=== PATIENT | male | born 1950 | race Caucasian/White ===

== ENCOUNTER 2022-05-12 11:43 | Inpatient (IN) | payer OTHER, MEDICARE, SELFPAY ==
[2022-05-12] VITALS (24 sets, daily range): BP systolic 111–154; BP diastolic 65–91; PULSE 47–59; RESP 12–24; TEMP 36.2–36.9; O2SAT 86–97; BMI 34.0; BMI 32.2
--- NOTE | 2022-05-12 | CRLHL7_ITS ---
For Patients: As a result of the Cures Act, medical imaging exams and procedure reports are released immediately into your electronic medical record. You may view this report before your referring provider. If you have questions, please contact your health care provider. Indication: Fall rib pain Technique: Portable chest Comparison: No comparison Findings: Low lung volumes. Enlarged cardiac silhouette diffuse prominent interstitial markings which may represent pulmonary edema. Left posterior 6th - 9th posterior fractures. No pneumothorax is seen. Dictated by Shasta Davis MD @ 05/12/2022 1:54:32 PM (Electronically Signed)
--- NOTE | 2022-05-12 13:15 | ED.GENADULT ---
HPI - General Adult General Date Seen: 05/12/22 Chief complaint: Fall/Minor Trauma Stated complaint: fell on ice, hurt ribs Time Seen by Provider: 05/12/22 11:44 Source: patient and family Mode of arrival: ambulatory Limitations: no limitations History of Present Illness HPI narrative: Patient is a 71-year-old male who slipped and fell on the ice last night. He landed on his left side and had a little bit of pain in his left flank area after the fall but was not severe. This morning however he had more severe pain and shortness of breath in that left lower posterior ribcage area. He arrives with his son significantly diaphoretic, noting severe pain and shortness of breath. His son says last night he really looked okay but seems significantly worse this morning. He does have a history of COPD but is not typically significantly short of breath and is not on home oxygen. He denies cardiac history. He does not have chest pain, has not been syncopal. He is not on any blood thinners. Related Data Home Medications Medication Instructions Recorded Confirmed aspirin 325 mg capsule 650 mg PO DAILY 05/12/22 05/12/22 atenolol 50 mg tablet 50 mg PO DAILY 05/12/22 05/12/22 atorvastatin 80 mg tablet 80 mg PO QPM 05/12/22 05/12/22 hydrochlorothiazide 25 mg tablet 25 mg PO DAILY 05/12/22 05/12/22 metformin 1,000 mg tablet 1,000 mg PO BID 05/12/22 05/12/22 montelukast 10 mg tablet 10 mg PO QPM 05/12/22 05/12/22 multivitamin 1 tab PO DAILY 05/12/22 05/12/22 Allergies Allergy/AdvReac Type Severity Reaction Status Date / Time Penicillins Allergy Unknown Verified 05/12/22 12:01 Review of Systems Status of ROS: Reports: 10 or more systems reviewed and unremarkable except as noted in History and below PFSH PFSH Medical History (Updated 05/12/22 @ 18:14 by Chen Perea MD) Adenomatous colon polyp Coronary atherosclerosis DJD (degenerative joint disease) Essential hypertension Impotence of organic origin Tobacco use disorder Surgical History (Updated 05/12/22 @ 18:44 by Chen Perea MD) H/O arthroscopy of knee H/O colonoscopy (~03/2013) H/O esophagogastroduodenoscopy (~05/2020) History of bunionectomy Family History (Updated 05/12/22 @ 18:15 by Chen Perea MD) Father Colon cancer Mother Brain tumor Social History (Updated 05/12/22 @ 18:48 by Chen Perea MD) Narrative: Lives with , son, daughter, grandkids. Smokes half pack of cigarettes per day for the last 40 years. Drinks 3-4 cans of beer per day; 3 last night. Denies recreational drugs. Smoking Status: Current every day smoker What tobacco products do you use: cigarettes Smoking packs per day: 0.5 Smoking cigarettes per day: 10.0 Do you use any of these nicotine containing products: None Second hand tobacco smoke exposure: No How often do you have a drink containing alcohol: never How often do you have six or more drinks on one occasion: Never AUDIT-C Alcohol total score: 0 Non-prescribed substance use: denies use service: No Exam Narrative: Exam Narrative: Vital signs as noted above. In general, an alert elderly male, conversant, profusely diaphoretic. Head: Normocephalic, atraumatic. Eyes: Pupils are equal reactive. Extraocular movements are full. Conjunctivae are normal. ENT: Mucous membranes are moist. Neck: Supple without lymphadenopathy. Heart: Regular rate and rhythm. No obvious murmur. Lungs: He has diffuse crackles and wheezes bilaterally. There is no visible trauma to chest or posterior ribcage, but he does have significant tenderness to the left lateral ribcage posteriorly. No crepitus or subQ air, no obvious deformity. Back: No posterior midline tenderness. Abdomen: Protuberant and soft, no tenderness. No visible trauma. Extremities: Radial pulses intact bilaterally. Neurologic: Patient is alert and oriented to person and place. Speech is fluent. Face is symmetric. Moves all extremities equally. Affect: Normal. Skin: Diaphoretic, warm. Const: Vital Signs, click to edit/add: Vital Signs - 24 hr 05/12/22 11:55 05/12/22 13:47 05/12/22 14:00 Temperature 97.1 F L Pulse Rate 49 L 51 L Pulse Rate [Pulse Oximeter] 57 L Respiratory Rate 20 Blood Pressure Blood Pressure [Ri ght Upper Arm] 154/74 H Pulse Oximetry 93 95 93 Oxygen Delivery Me thod Room Air 05/12/22 14:02 05/12/22 14:15 05/12/22 14:30 Temperature Pulse Rate 47 L 54 L 51 L Pulse Rate [Pulse Oximeter] Respiratory Rate Blood Pressure 128/65 Blood Pressure [Ri ght Upper Arm] Pulse Oximetry 93 94 95 Oxygen Delivery Me thod 05/12/22 14:31 05/12/22 14:45 05/12/22 15:02 Temperature Pulse Rate 52 L 54 L 59 L Pulse Rate [Pulse Oximeter] Respiratory Rate Blood Pressure 121/67 Blood Pressure [Ri ght Upper Arm] Pulse Oximetry 95 94 94 Oxygen Delivery Me thod 05/12/22 15:15 05/12/22 15:30 05/12/22 15:34 Temperature Pulse Rate 52 L 51 L 49 L Pulse Rate [Pulse Oximeter] Respiratory Rate Blood Pressure Blood Pressure [Ri ght Upper Arm] Pulse Oximetry 94 96 96 Oxygen Delivery Me thod 05/12/22 15:45 05/12/22 16:00 05/12/22 16:04 Temperature Pulse Rate 48 L 50 L 50 L Pulse Rate [Pulse Oximeter] Respiratory Rate Blood Pressure Blood Pressure [Ri ght Upper Arm] Pulse Oximetry 95 97 97 Oxygen Delivery Me thod 05/12/22 16:15 05/12/22 16:30 05/12/22 16:35 Temperature Pulse Rate 57 L 51 L 50 L Pulse Rate [Pulse Oximeter] Respiratory Rate Blood Pressure 133/75 Blood Pressure [Ri ght Upper Arm] Pulse Oximetry 95 95 95 Oxygen Delivery Me thod 05/12/22 16:45 05/12/22 17:00 05/12/22 17:02 Temperature Pulse Rate 51 L 48 L 50 L Pulse Rate [Pulse Oximeter] Respiratory Rate Blood Pressure 125/68 Blood Pressure [Ri ght Upper Arm] Pulse Oximetry 95 95 95 Oxygen Delivery Me thod Documenting provider has reviewed patient's vital signs: yes Course Course Hospital Course: On initial arrival, patient was placed on the monitor and oximetry. I used the ultrasound to look at his left chest and did not see evidence of significant fluid collection at the base of the lung, did see sliding lung sign at the apex. Portable chest x-ray was ordered. He was placed on 2 L of nasal cannula oxygen for comfort. I ordered a DuoNeb. I also ordered 4 mg of morphine IV. An EKG is pending. Review of a portable chest x-ray by my review shows at least 3 posterior rib fractures, I do not see obvious pneumothorax or hemothorax. I will go ahead and order a CT scan however. Patient was significantly improved after neb and pain medications, he was resting comfortably although he does still sound a little bit junky. Wheezing is improved. His white blood cell count was elevated at 13.4, hemoglobin 17.8. Platelets normal. D-dimer was normal for age 0.67. Electrolytes normal, creatinine 0.9. CRP was 0.6. Lactate normal at 1.4. BNP relatively unremarkable at 584. No evidence of significant heart failure on x-ray. Urinalysis was notable for 0-2 red cells 0-2 white blood cells. Point of care troponin was 0.01. He did have an EKG which showed a sinus bradycardia with possibly septal Q-waves although there is quite a bit of artifact. He does have flipped T-waves in 3 and F. the flipped T-waves are new compared to a prior EKG but this is from 2009. The septal Q-waves are actually not new compared to that EKG. CT scan by my review does not show evidence of pneumothorax or hemothorax. He has posterior rib fractures as seen on the x-ray. Final radiology read is notable for rib fractures of the 7th 8th and 9th ribs. They read the rest of the CT is unremarkable. I gave him prednisone 60 mg orally. He did require additional morphine for pain control. Overall, I think he will benefit from admission for pain control, management of his respiratory status for a day or 2. He is amenable to that. He will be admitted to the hospital service. Vital Signs Vital signs: Initial Vital Signs Temperature 97.1 F L 05/12/22 11:55 Temperature Source Temporal Artery Scan 05/12/22 11:55 Pulse Rate 57 L 05/12/22 11:55 Respiratory Rate 20 05/12/22 11:55 Blood Pressure 154/74 H 05/12/22 11:55 Blood Pressure Mean 100 05/12/22 11:55 Blood Pressure Position Supine 05/12/22 11:55 Pulse Oximetry 93 05/12/22 11:55 Oxygen Delivery Method 05/12/22 11:55 Vital Signs Temperature 97.1 F L 05/12/22 11:55 Pulse Rate 57 L 05/12/22 11:55 Respiratory Rate 20 05/12/22 11:55 Blood Pressure 154/74 H 05/12/22 11:55 Pulse Oximetry 93 05/12/22 11:55 Oxygen Delivery Method 05/12/22 11:55 Temperature 98.4 F 05/12/22 18:00 Pulse Rate 53 L 05/12/22 18:00 Respiratory Rate 24 05/12/22 18:00 Blood Pressure 134/91 H 05/12/22 18:00 Pulse Oximetry 94 05/12/22 18:00 Oxygen Delivery Method 05/12/22 18:00 Medical Decision Making Lab Data Labs: Lab Results 05/12/22 05/12/22 05/12/22 Range/Units 13:01 13:15 13:15 WBC 13.38 H (4.50-11.00) K/uL RBC 5.91 H (4.30-5.90) m/uL Hgb 17.8 H (13.5-17.5) gm/dL Hct 53.8 H (37.0-53.0) % MCV 91 (80-100) fL MCH 30 (26-34) pg MCHC 33 (32-36) gm/dL RDW Coeff of Alex 12.2 (11.5-15.5) % Plt Count 248 (140-440) K/uL Neut % (Auto) 72.0 (42.0-72.0) % Lymph % (Auto) 13.3 L (20-44) % [place] % (Auto) 13.7 H (0.0-11.0) % Eos % (Auto) 0.4 (0.0-7.0) % Baso % (Auto) 0.4 (0.0-3.0) % Neut # (Auto) 9.60 H (1.7-7.0) K/uL Lymph # (Auto) 1.80 (0.90-2.90) K/uL [place] # (Auto) 1.80 H (0.00-0.90) K/UL Eos # (Auto) 0.10 (0.00-0.50) K/uL Baso # (Auto) 0.10 (0.00-0.30) K/uL D-Dimer Quant (PE/DVT) 0.67 H (0.00-0.50) ug/ml Sodium (135-149) mmol/L Potassium (3.6-5.1) mmol/L Chloride (96-114) mmol/L Carbon Dioxide (20-32) mmol/L BUN (7-30) mg/dL Creatinine (0.5-1.5) mg/dL Estimated Creat Clear Estimated GFR ml/min Glucose (60-115) mg/dL Lactate (0.5-1.9) mmol/L Calcium (8.4-10.6) mg/dL C-Reactive Protein (0.5-1.0) mg/dL NT-Pro-B Natriuret Pep pg/mL Urine Color (Yellow) Urine Appearance (Clear) Urine pH (5.0-8.5) Ur Specific [place] (1.000-1.030) Urine Protein (Negative) Urine Glucose (UA) (Negative) Urine Ketones (Negative) Urine Blood (Negative) Urine Nitrite (Negative) Urine Bilirubin (Negative) Urine Urobilinogen (0.2-1.0) Ur Leukocyte Esterase (Negative) Urine RBC (0-2) Urine WBC (0-5) Ur Squamous Epith Cells (None-Few) Urine Bacteria (None) SARS-CoV-2 (PCR) (Negative) Influenza Type A (PCR) (Negative) Influenza Type B (PCR) (Negative) RSV (PCR) (Negative) POC Troponin I 0.01 (0.01-0.04) ng/ml 05/12/22 05/12/22 05/12/22 Range/Units 13:15 13:15 13:15 WBC (4.50-11.00) K/uL RBC (4.30-5.90) m/uL Hgb (13.5-17.5) gm/dL Hct (37.0-53.0) % MCV (80-100) fL MCH (26-34) pg MCHC (32-36) gm/dL RDW Coeff of Alex (11.5-15.5) % Plt Count (140-440) K/uL Neut % (Auto) (42.0-72.0) % Lymph % (Auto) (20-44) % [place] % (Auto) (0.0-11.0) % Eos % (Auto) (0.0-7.0) % Baso % (Auto) (0.0-3.0) % Neut # (Auto) (1.7-7.0) K/uL Lymph # (Auto) (0.90-2.90) K/uL [place] # (Auto) (0.00-0.90) K/UL Eos # (Auto) (0.00-0.50) K/uL Baso # (Auto) (0.00-0.30) K/uL D-Dimer Quant (PE/DVT) (0.00-0.50) ug/ml Sodium 135 (135-149) mmol/L Potassium 4.7 (3.6-5.1) mmol/L Chloride 98 (96-114) mmol/L Carbon Dioxide 30 (20-32) mmol/L BUN 15 (7-30) mg/dL Creatinine 0.9 (0.5-1.5) mg/dL Estimated Creat Clear 69.72 Estimated GFR 92 ml/min Glucose 165 H (60-115) mg/dL Lactate 1.4 (0.5-1.9) mmol/L Calcium 9.2 (8.4-10.6) mg/dL C-Reactive Protein 0.6 (0.5-1.0) mg/dL NT-Pro-B Natriuret Pep 584 pg/mL Urine Color Yellow (Yellow) Urine Appearance Clear (Clear) Urine pH 6.5 (5.0-8.5) Ur Specific [place] 1.020 (1.000-1.030) Urine Protein Negative (Negative) Urine Glucose (UA) Negative (Negative) Urine Ketones 1+ A (Negative) Urine Blood Trace-intact A (Negative) Urine Nitrite Negative (Negative) Urine Bilirubin Negative (Negative) Urine Urobilinogen 0.2 (0.2-1.0) Ur Leukocyte Esterase Negative (Negative) Urine RBC 0-2 (0-2) Urine WBC 0-2 (0-5) Ur Squamous Epith Cells Few (None-Few) Urine Bacteria Few A (None) SARS-CoV-2 (PCR) (Negative) Influenza Type A (PCR) (Negative) Influenza Type B (PCR) (Negative) RSV (PCR) (Negative) POC Troponin I (0.01-0.04) ng/ml 05/12/22 Range/Units 16:00 WBC (4.50-11.00) K/uL RBC (4.30-5.90) m/uL Hgb (13.5-17.5) gm/dL Hct (37.0-53.0) % MCV (80-100) fL MCH (26-34) pg MCHC (32-36) gm/dL RDW Coeff of Alex (11.5-15.5) % Plt Count (140-440) K/uL Neut % (Auto) (42.0-72.0) % Lymph % (Auto) (20-44) % [place] % (Auto) (0.0-11.0) % Eos % (Auto) (0.0-7.0) % Baso % (Auto) (0.0-3.0) % Neut # (Auto) (1.7-7.0) K/uL Lymph # (Auto) (0.90-2.90) K/uL [place] # (Auto) (0.00-0.90) K/UL Eos # (Auto) (0.00-0.50) K/uL Baso # (Auto) (0.00-0.30) K/uL D-Dimer Quant (PE/DVT) (0.00-0.50) ug/ml Sodium (135-149) mmol/L Potassium (3.6-5.1) mmol/L Chloride (96-114) mmol/L Carbon Dioxide (20-32) mmol/L BUN (7-30) mg/dL Creatinine (0.5-1.5) mg/dL Estimated Creat Clear Estimated GFR ml/min Glucose (60-115) mg/dL Lactate (0.5-1.9) mmol/L Calcium (8.4-10.6) mg/dL C-Reactive Protein (0.5-1.0) mg/dL NT-Pro-B Natriuret Pep pg/mL Urine Color (Yellow) Urine Appearance (Clear) Urine pH (5.0-8.5) Ur Specific [place] (1.000-1.030) Urine Protein (Negative) Urine Glucose (UA) (Negative) Urine Ketones (Negative) Urine Blood (Negative) Urine Nitrite (Negative) Urine Bilirubin (Negative) Urine Urobilinogen (0.2-1.0) Ur Leukocyte Esterase (Negative) Urine RBC (0-2) Urine WBC (0-5) Ur Squamous Epith Cells (None-Few) Urine Bacteria (None) SARS-CoV-2 (PCR) Negative SARS-CoV-2 (Negative) Influenza Type A (PCR) Negative PCR FLU A (Negative) Influenza Type B (PCR) Negative PCR FLU B (Negative) RSV (PCR) Negative PCR RSV (Negative) POC Troponin I (0.01-0.04) ng/ml Discharge Plan Discharge Clinical Impression: Multiple fractures of ribs of left side, COPD (chronic obstructive pulmonary disease) Patient Disposition: Admitted As Inpatient Condition: Improved
--- NOTE | 2022-05-12 13:21 | CRLHL7_ITS ---
For Patients: As a result of the Century Cures Act, medical imaging exams and procedure reports are released immediately into your electronic medical record. You may view this report before your referring provider. If you have questions, please contact your health care provider. INDICATION: Lung nodule TECHNIQUE: CT chest with 98 mL Isovue 370 IV contrast. COMPARISON: Chest x-ray the same day. FINDINGS: Lungs and pleura: No suspicious nodules or infiltrates. No pleural effusions, pleural thickening, or pneumothorax. Heart and vasculature: Heart size is normal. Thoracic aorta and pulmonary artery are normal in caliber. Coronary artery calcifications. Aberrant right subclavian artery, anatomic variant. Lymph nodes/mediastinum: No mediastinal, hilar, or axillary adenopathy. Enlarged right thyroid lobe. Chest wall: No masses. Upper abdomen: Normal. Bones: Nondisplaced fractures of the posterior left 7th, 8th, and 9th ribs. IMPRESSION: Posterior left 7th through 9th rib fractures. Please note that all CT scans at this facility use dose modulation, iterative reconstruction, and/or weight-based dosing when appropriate to reduce radiation dose to as low as reasonably achievable. Dictated by Eulalio Ivey MD @ 05/12/2022 3:48:31 PM (Electronically Signed)
[2022-05-12 13:29] LABS: Lactate* 1.4 mmol/L (0.5-1.9)
[2022-05-12] MEDS: 0.9 % SODIUM CHLORIDE 1000 ml 1,000 ML IV (13:30)
[2022-05-12] MEDS: IPRAT-ALBUT 0.5-2.5 MG/3 ML NEB 1 NEB IH ×2 (13:30→20:05)
[2022-05-12 13:32] LABS: Appearance Urine Clear (Clear); Bilirubin Urine Negative (Negative); Blood Urine Trace-intact (Negative); Color Urine Yellow (Yellow); Glucose Urine Negative (Negative); Ketones Urine 1+ (Negative); Leukocyte Esterase Urine Negative (Negative); Nitrite Urine Negative (Negative); Protein Urine Negative (Negative); Urobilinogen Urine 0.2 (0.2-1.0); pH Urine 6.5 (5.0-8.5)
[2022-05-12] MEDS: MORPHINE 4 MG/ML INJ IVP ×2 (13:33→16:33)
[2022-05-12 13:35] LABS: Troponin, Point-of-Care* 0.01 ng/ml (0.01-0.04)
[2022-05-12] MEDS: ONDANSETRON 2 MG/ML inj 4 MG IVP (13:36)
[2022-05-12 13:44] LABS: Basophils Percent Auto 0.4 % (0.0-3.0); Eosinophils Percent Auto 0.4 % (0.0-7.0); Hematocrit 53.8 % (37.0-53.0); Hemoglobin* 17.8 gm/dL (13.5-17.5); Immature Granulocytes Pct Auto 0.2 %; Lymphocytes Percent Auto 13.3 % (20-44); Mean Corpuscular HGB Conc 33 gm/dL (32-36); Mean Corpuscular Hemoglobin 30 pg (26-34); Mean Corpuscular Volume 91 fL (80-100); Monocytes Percent Auto 13.7 % (0.0-11.0); Platelet Count* 248 K/uL (140-440); RDW Coefficient of Variation % 12.2 % (11.5-15.5); Red Blood Count 5.91 m/uL (4.30-5.90); White Blood Count* 13.38 K/uL (4.50-11.00)
[2022-05-12 13:50] LABS: Slide Review Reflex No
[2022-05-12 13:57] LABS: Chloride* 98 mmol/L (96-114); Potassium* 4.7 mmol/L (3.6-5.1); Sodium* 135 mmol/L (135-149)
[2022-05-12 14:00] LABS: Creatinine* 0.9 mg/dL (0.5-1.5); Est. Creatinine Clearance* 69.72; Estimated Glomerular Filt Rate 92 ml/min
[2022-05-12 14:01] LABS: Blood Urea Nitrogen* 15 mg/dL (7-30); Calcium* 9.2 mg/dL (8.4-10.6); Carbon Dioxide* 30 mmol/L (20-32); D Dimer Quantitative* 0.67 ug/ml (0.00-0.50); Glucose* 165 mg/dL (60-115)
[2022-05-12 14:03] LABS: C Reactive Protein* 0.6 mg/dL (0.5-1.0)
[2022-05-12 14:14] LABS: NT Pro B Type NatriureticPept* 584 pg/mL
[2022-05-12 14:16] LABS: Bacteria Urine Few; RBC Urine 0-2 (0-2); Squamous Epithelial Cell Urine Few (None-Few); WBC Urine 0-2 (0-5)
[2022-05-12] MEDS: predniSONE 20 MG TABLET 60 MG PO (16:17)
[2022-05-12 17:03] LABS: PCR FLU A Negative PCR FLU A (Negative); PCR FLU B Negative PCR FLU B (Negative); PCR RSV Negative PCR RSV (Negative)
[2022-05-12 17:05] LABS: SARS PCR* Negative SARS-CoV-2 (Negative)
--- NOTE | 2022-05-12 18:41 | P.IMHP_ITS ---
Hospitalist- H&P: HPI History of Present Illness Date Seen: 05/12/22 Chief complaint: fell on ice, hurt ribs Narrative: Pasquale Lomas is a 71 year old male who was coming back into the house from the bar last night after tucking in the horses when he slipped on the ice. He fell backward and hit his left flank. He immediately had pain there, but it was not intolerable, so he went to bed, but woke up this morning feeling much worse with pain in his left back and difficulty taking a deep breath due to pain. His son brought him to the ER saying that he was getting worse. Pasquale tells me that he has a history of asthma and he does continue to smoke a half a pack of cigarettes per day. He occasionally uses an inhaler at home but does not remember the name of it. When I mention albuterol, he notes that sounds familiar. He has been well lately and denies any lower extremity edema, coughs or colds. He denies any anticoagulation other than to regular dose aspirin daily. He has been taking that for ever and does not even remember why, but says it is probably for aches and pains. Review of Systems Status of ROS: Reports: 10 or more systems reviewed and unremarkable except as noted in History and below PFSH [facility] Medical History (Updated 05/12/22 @ 19:32 by Chen Perea MD) Adenomatous colon polyp Coronary atherosclerosis DJD (degenerative joint disease) Essential hypertension Impotence of organic origin Tobacco use disorder Surgical History (Updated 05/12/22 @ 18:44 by Chen Perea MD) H/O arthroscopy of knee H/O colonoscopy (~03/2013) H/O esophagogastroduodenoscopy (~05/2020) History of bunionectomy Family History (Updated 05/12/22 @ 18:15 by Chen Perea MD) Father Colon cancer Mother Brain tumor Social History (Updated 05/12/22 @ 18:48 by Chen Perea MD) Narrative: Lives with , son, daughter, grandkids. Smokes half pack of cigarettes per day for the last 40 years. Drinks 3-4 cans of beer per day; 3 last night. Denies recreational drugs. Smoking Status: Current every day smoker What tobacco products do you use: cigarettes Smoking packs per day: 0.5 Smoking cigarettes per day: 10.0 Do you use any of these nicotine containing products: None Second hand tobacco smoke exposure: No How often do you have a drink containing alcohol: never How often do you have six or more drinks on one occasion: Never AUDIT-C Alcohol total score: 0 Non-prescribed substance use: denies use service: No Meds Home Medications and Allergies Home Medications Medication Instructions Recorded Confirmed Type aspirin 325 mg capsule 650 mg PO DAILY 05/12/22 05/12/22 History atenolol 50 mg tablet 50 mg PO DAILY 05/12/22 05/12/22 History atorvastatin 80 mg tablet 80 mg PO QPM 05/12/22 05/12/22 History hydrochlorothiazide 25 mg tablet 25 mg PO DAILY 05/12/22 05/12/22 History metformin 1,000 mg tablet 1,000 mg PO BID 05/12/22 05/12/22 History montelukast 10 mg tablet 10 mg PO QPM 05/12/22 05/12/22 History multivitamin 1 tab PO DAILY 05/12/22 05/12/22 History Allergies Allergy/AdvReac Type Severity Reaction Status Date / Time Penicillins Allergy Unknown Verified 05/12/22 12:01 Exam Narrative: Exam Narrative: General: Gripping the handle on the bed and looks painful. Short shallow frequent breaths. Speaking in short sentences. Audible gurgling from across the room. Awake alert oriented x3. HEENT: Normocephalic atraumatic, pupils equally round and reactive to light and accommodation. Oropharynx clear. Mucous membranes are moist. No cervical lymphadenopathy, thyromegaly or carotid bruits. No JVD. Cardiovascular: Regular rate and rhythm. No murmurs, gallops, or rubs. Chest: Upper airway gurgling, but also rales in both lower lung arango. Shallow breaths, no wheezes. I did not see any bruising over the chest, but was unable to visually examine his back because he was too painful to move. I was able to gently palpate by sliding my hand between him and the bed and did not feel any abrasions or broken skin or any hematomas. Abdomen: Bowel sounds present. Soft, protuberant, nondistended, nontender. No hepatosplenomegaly or masses. Extremities: No edema, no cyanosis or clubbing. Skin: No jaundice, no pallor, no rashes. Neuro: Grossly intact. No focal deficits. Const: Vital Signs, click to edit/add: Vital Signs - 24 hr 05/12/22 11:55 05/12/22 13:47 05/12/22 14:00 Temperature 97.1 F L Pulse Rate 49 L 51 L Pulse Rate [Apical ] Pulse Rate [Pulse Oximeter] 57 L Respiratory Rate 20 Blood Pressure Blood Pressure [Ri ght Arm] Blood Pressure [Ri ght Upper Arm] 154/74 H Pulse Oximetry 93 95 93 [facility] 05/12/22 14:02 05/12/22 14:15 05/12/22 14:30 Temperature Pulse Rate 47 L 54 L 51 L Pulse Rate [Apical ] Pulse Rate [Pulse Oximeter] Respiratory Rate Blood Pressure 128/65 Blood Pressure [Ri ght Arm] Blood Pressure [Ri ght Upper Arm] Pulse Oximetry 93 94 95 Oxygen Delivery Dc thod 05/12/22 14:31 05/12/22 14:45 05/12/22 15:02 Temperature Pulse Rate 52 L 54 L 59 L Pulse Rate [Apical ] Pulse Rate [Pulse Oximeter] Respiratory Rate Blood Pressure 121/67 Blood Pressure [Ri ght Arm] Blood Pressure [Ri ght Upper Arm] Pulse Oximetry 95 94 94 Oxygen Delivery Dc thod 05/12/22 15:15 05/12/22 15:30 05/12/22 15:34 Temperature Pulse Rate 52 L 51 L 49 L Pulse Rate [Apical ] Pulse Rate [Pulse Oximeter] Respiratory Rate Blood Pressure Blood Pressure [Ri ght Arm] Blood Pressure [Ri ght Upper Arm] Pulse Oximetry 94 96 96 Oxygen Delivery Dc thod 05/12/22 15:45 05/12/22 16:00 05/12/22 16:04 Temperature Pulse Rate 48 L 50 L 50 L Pulse Rate [Apical ] Pulse Rate [Pulse Oximeter] Respiratory Rate Blood Pressure Blood Pressure [Ri ght Arm] Blood Pressure [Ri ght Upper Arm] Pulse Oximetry 95 97 97 Oxygen Delivery Dc thod 05/12/22 16:15 05/12/22 16:30 05/12/22 16:35 Temperature Pulse Rate 57 L 51 L 50 L Pulse Rate [Apical ] Pulse Rate [Pulse Oximeter] Respiratory Rate Blood Pressure 133/75 Blood Pressure [Ri ght Arm] Blood Pressure [Ri ght Upper Arm] Pulse Oximetry 95 95 95 Oxygen Delivery Me thod 05/12/22 16:45 05/12/22 17:00 05/12/22 17:02 Temperature Pulse Rate 51 L 48 L 50 L Pulse Rate [Apical ] Pulse Rate [Pulse Oximeter] Respiratory Rate Blood Pressure 125/68 Blood Pressure [Ri ght Arm] Blood Pressure [Ri ght Upper Arm] Pulse Oximetry 95 95 95 Oxygen Delivery Me thod 05/12/22 18:00 05/12/22 17:50 Temperature 98.4 F Pulse Rate Pulse Rate [Apical ] 53 L Pulse Rate [Pulse Oximeter] Respiratory Rate 24 24 Blood Pressure Blood Pressure [Ri ght Arm] 134/91 H Blood Pressure [Ri ght Upper Arm] Pulse Oximetry 94 86 L Oxygen Delivery Me thod Room Air Room Air Hospitalist - H&P: Result Labs Labs: Short CBC 05/12/22 Range/Units 13:15 WBC 13.38 H (4.50-11.00) K/uL Hgb 17.8 H (13.5-17.5) gm/dL Hct 53.8 H (37.0-53.0) % Plt Count 248 (140-440) K/uL BMP 05/12/22 13:15 Sodium 135 Potassium 4.7 Chloride 98 Carbon Dioxide 30 BUN 15 Creatinine 0.9 Glucose 165 H Calcium 9.2 Urine 05/12/22 Range/Units 13:15 Urine Color Yellow (Yellow) Urine Appearance Clear (Clear) Urine pH 6.5 (5.0-8.5) Ur Specific Orange 1.020 (1.000-1.030) Urine Protein Negative (Negative) Urine Glucose (UA) Negative (Negative) Ordering Physician: Jolly Warren M.D. Date of Service: 05/12/22 Procedure(s): XR chest 1V portable Accession Number(s): [id number] cc: Jolly Warren M.D.; Fiordaliza Gale D.O.~ For Patients: As a result of the Cures Act, medical imaging exams and procedure reports are released immediately into your electronic medical record. You may view this report before your referring provider. If you have questions, please contact your health care provider. Indication: Fall rib pain Technique: Portable chest Comparison: No comparison Findings: Low lung volumes. Enlarged cardiac silhouette diffuse prominent interstitial markings which may represent pulmonary edema. Left posterior 6th - 9th posterior fractures. No pneumothorax is seen. Dictated by Shasta Davis MD @ 05/12/2022 1:54:32 PM (Electronically Signed) Ordering Physician: Jolly Warren M.D. Date of Service: 05/12/22 Procedure(s): CT chest w con Accession Number(s): [id number] cc: Jolly Warren M.D.; Fiordaliza Gale D.O.~ For Patients: As a result of the Cures Act, medical imaging exams and procedure reports are released immediately into your electronic medical record. You may view this report before your referring provider. If you have questions, please contact your health care provider. INDICATION: Lung nodule TECHNIQUE: CT chest with 98 mL Isovue 370 IV contrast. COMPARISON: Chest x-ray the same day. FINDINGS: Lungs and pleura: No suspicious nodules or infiltrates. No pleural effusions, pleural thickening, or pneumothorax. Heart and vasculature: Heart size is normal. Thoracic aorta and pulmonary artery are normal in caliber. Coronary artery calcifications. Aberrant right subclavian artery, anatomic variant. Lymph nodes/mediastinum: No mediastinal, hilar, or axillary adenopathy. Enlarged right thyroid lobe. Chest wall: No masses. Upper abdomen: Normal. Bones: Nondisplaced fractures of the posterior left 7th, 8th, and 9th ribs. IMPRESSION: Posterior left 7th through 9th rib fractures. Please note that all CT scans at this facility use dose modulation, iterative reconstruction, and/or weight-based dosing when appropriate to reduce radiation dose to as low as reasonably achievable. Dictated by Eulalio Ivey MD @ 05/12/2022 3:48:31 PM (Electronically Signed) 05/12/2022 2:42 p.m. EKG: Sinus bradycardia. Heart rate 53 beats per minute. Anterior septal infarct, age undetermined. T-wave abnormality, consider inferior ischemia. I found an EKG from 12/06/2014 in [facility] records, and the EKG is unchanged. Assessment and Plan Assessment and plan (1) Multiple fractures of ribs of left side: Status: Acute (2) Acute respiratory distress: Status: Acute (3) COPD (chronic obstructive pulmonary disease): Status: Acute (4) Tobacco use disorder: Status: Acute Plan 71-year-old male who fell and slipped on the ice sustaining 3 posterior left rib fractures. He is quite painful today and splinting. He has upper airway sounds as well as rales. He has a history of COPD which I think has been exacerbated by this episode. He got prednisone in the emergency department which I will continue daily. I have also ordered DuoNebs and vibratory pep. I do not think he needs antibiotics at this time. I have ordered oxycodone for pain control and he will be seen by PT and OT tomorrow. Anticipate he will just need to be here overnight. Additionally it is possible he has some volume overload for which I will give him a dose of furosemide IV today.
[2022-05-12] MEDS: OXYCODONE 5 MG TABLET PO (18:49)
[2022-05-12] MEDS: FUROSEMIDE 10 MG/ML inj 40 MG IVP (20:05)
[2022-05-12] MEDS: NICOTINE 7 MG PATCH 1 PATCH TRANSDERMA (20:05)
[2022-05-12] MEDS: METFORMIN 1,000 MG TABLET 1000 MG PO (20:05)
[2022-05-12] MEDS: THIAMINE 100 MG TABLET PO (20:06)
[2022-05-12] MEDS: SODIUM CHLORIDE 0.9 % (FLUSH) 10 ML SYRINGE 5 ML IVF (20:06)
--- NOTE | 2022-05-12 22:36 | PC.NURSE ---
Shift [id number]- Patient states PRN pain medication offered some relief to rib pain, also finds ice effective. He is up and voiding. Wet sounding breathing. O2 at 2L with saturations in low-mid 90s%.
[2022-05-13] VITALS (9 sets, daily range): BP systolic 118–164; BP diastolic 67–86; PULSE 53–68; RESP 12–22; TEMP 36.6–37.3; O2SAT 91–97
[2022-05-13] MEDS: OXYCODONE 5 MG TABLET PO ×2 (07:39→11:38)
[2022-05-13] MEDS: FOLIC ACID 1 MG TABLET PO (08:48)
[2022-05-13] MEDS: hydroCHLOROthiazide 25 MG TABLET PO (08:48)
[2022-05-13] MEDS: predniSONE 20 MG TABLET 40 MG PO (08:48)
[2022-05-13] MEDS: atenoloL 50 MG TABLET 25 MG PO (08:48)
[2022-05-13] MEDS: METFORMIN 1,000 MG TABLET 1000 MG PO ×2 (08:48→20:34)
[2022-05-13] MEDS: MULTIVITAMIN/MINERALS 1 TABLET 1 TAB PO (08:48)
[2022-05-13] MEDS: SODIUM CHLORIDE 0.9 % (FLUSH) 10 ML SYRINGE 5 ML IVF ×3 (08:49→20:34)
[2022-05-13] MEDS: IPRAT-ALBUT 0.5-2.5 MG/3 ML NEB 1 NEB IH (10:21)
--- NOTE | 2022-05-13 11:44 | RESP.RT ---
Patient sitting on edge of bed, on room air, SaO2 92%, breathing regular/easy shallow. BBS coarse rales/rhonchi inspiratory/expiratory, clear slightly with use of Aerobika. PEP instruction, demonstration with patient, patient return fair exhalation with fair chest shake. Patient States, painful with any more effort than that. Told patient it will get better, and he will notice the difference with use of Aerobika. Needs encouragement by RT and Nurse to continue to use Aerobika. Patient stated Nebulizer treatments seem helpful, would continue with these treatments PRN as patient needs. Goal to keep SaO2 >90%, Nasal cannula if needed and encourae patient to use Aerobika to assist with secretion mobilization.
--- NOTE | 2022-05-13 14:59 | PM.IMPN1 ---
Progress Note: A&P Assessment and plan (1) Multiple fractures of ribs of left side: Problem details: Traumatic rib fractures without other obvious injuries. Patient is developing respiratory complications due to pain. Encourage adequate pain management to allow coughing and deep breathing. Good pulmonary toilet. Status: Acute (2) COPD (chronic obstructive pulmonary disease): Problem details: Inhaled bronchodilators Status: Acute (3) Acute respiratory distress: Problem details: Supplemental oxygen as needed Status: Acute (4) Tobacco use disorder: Status: Acute Plan Continue in-hospital well still needing monitoring for respiratory failure and supplemental oxygen. Improved pain control. Time Spent With Patient Total time spent: Total time spent today is 45 minutes, 35 minutes in coordination of care and discussing with patient other providers management of rib fractures and pulmonary complications. Subjective Date Seen: 05/13/22 Interval history: 71-year-old male seen in followup of hospitalization for left-sided rib fractures associated with hypoxia. Patient fell 2 days ago and sustained a fracture to his posterior left 7 8 and 9 ribs. Initially did okay but yesterday was having increasing pain with shortness of breath. He is evaluated in the emergency room where he was found to be hypoxic. Chest imaging showed rib fractures without any other acute infiltrate or other obvious trigger traumatic injury or bleeding. Patient reports today still feeling poorly. Hurts to breathe and hurts to cough. He reports he has intentionally taking very shallow breaths. He has a rattle in his chest when he breathes and he says it hurts to cough up the mucus. Exam Narrative: Exam Narrative: He is alert and appears uncomfortable. Audible rhonchi with breathing. Mildly tachypneic. Respirations with crackles on the low left lower and mid chest. Relatively clear on the right. Patient resists coughing to clear his airway. Cardiovascular: S1, S2, regular rate and rhythm. Abdomen is soft without tenderness or mass. Extremities without edema. Const: Vital Signs, click to edit/add: Vital Signs - 24 hr 05/12/22 15:02 05/12/22 15:15 05/12/22 15:30 Temperature Pulse Rate 59 L 52 L 51 L Pulse Rate [Apical ] Respiratory Rate Blood Pressure Blood Pressure [Ri ght Arm] Pulse Oximetry 94 94 96 Oxygen Delivery Me thod Oxygen Flow Rate 05/12/22 15:34 05/12/22 15:45 05/12/22 16:00 Temperature Pulse Rate 49 L 48 L 50 L Pulse Rate [Apical ] Respiratory Rate Blood Pressure Blood Pressure [Ri ght Arm] Pulse Oximetry 96 95 97 Oxygen Delivery Me thod Oxygen Flow Rate 05/12/22 16:04 05/12/22 16:15 05/12/22 16:30 Temperature Pulse Rate 50 L 57 L 51 L Pulse Rate [Apical ] Respiratory Rate Blood Pressure Blood Pressure [Ri ght Arm] Pulse Oximetry 97 95 95 Oxygen Delivery Me thod Oxygen Flow Rate 05/12/22 16:35 05/12/22 16:45 05/12/22 17:00 Temperature Pulse Rate 50 L 51 L 48 L Pulse Rate [Apical ] Respiratory Rate Blood Pressure 133/75 Blood Pressure [Ri ght Arm] Pulse Oximetry 95 95 95 Oxygen Delivery Me thod Oxygen Flow Rate 05/12/22 17:02 05/12/22 18:00 05/12/22 17:50 Temperature 98.4 F Pulse Rate 50 L Pulse Rate [Apical ] 53 L Respiratory Rate 24 24 Blood Pressure 125/68 Blood Pressure [Ri ght Arm] 134/91 H Pulse Oximetry 95 94 86 L Oxygen Delivery Me thod Room Air Room Air Oxygen Flow Rate 05/12/22 23:49 05/12/22 23:49 05/12/22 23:49 Temperature 97.8 F Pulse Rate Pulse Rate [Apical ] 59 L 59 L Respiratory Rate 12 12 Blood Pressure Blood Pressure [Ri ght Arm] 111/66 Pulse Oximetry 93 Oxygen Delivery Me thod Nasal Cannula Nasal Cannula Oxygen Flow Rate 2 2 05/13/22 06:42 05/13/22 08:00 05/13/22 08:00 Temperature 98 F 98 F Pulse Rate Pulse Rate [Apical ] 53 L 58 L Respiratory Rate 12 20 20 Blood Pressure Blood Pressure [Ri ght Arm] 119/67 138/86 Pulse Oximetry 97 94 94 Oxygen Delivery Me thod Nasal Cannula Nasal Cannula Nasal Cannula Oxygen Flow Rate 2 2 2 05/13/22 11:44 05/13/22 11:40 Temperature 98.2 F Pulse Rate Pulse Rate [Apical ] 62 Respiratory Rate 20 22 Blood Pressure Blood Pressure [Ri ght Arm] 164/78 H Pulse Oximetry 91 92 Oxygen Delivery Me thod Nasal Cannula Room Air Oxygen Flow Rate 2 Documenting provider has reviewed patient's vital signs: yes Labs Labs: Laboratory Results - last 24 hr 05/12/22 16:00 SARS-CoV-2 (PCR) Negative SARS-CoV-2 Influenza Type A (PCR) Negative PCR FLU A Influenza Type B (PCR) Negative PCR FLU B RSV (PCR) Negative PCR RSV
[2022-05-13] MEDS: HYDROmorphone 0.5 mg/0.5 ml inj IVP ×2 (15:28→20:35)
[2022-05-13] MEDS: LOSARTAN POTASSIUM 50 MG TABLET PO (15:29)
--- NOTE | 2022-05-13 17:17 | PC.NURSE ---
Shift Summary: Patient pleasant and cooperative, up independently, denies SOB. Pain 9/10 throughout day, poor control is PRN oxycodone, received new order for PRN dilaudid which has been effective. Patient has been resting in bed with ice pack under left back. Continues to be on o2 @ 2L/NC. Tolerating regular diet. Unable to cough to clear throat, encouraged to use pillow/blanket as splint.
[2022-05-13] MEDS: ATORVASTATIN CALCIUM 40 MG TABLET 80 MG PO (17:39)
[2022-05-13] MEDS: NAPROXEN 250 MG TABLET PO (17:39)
[2022-05-13] MEDS: MONTELUKAST 10 MG TABLET PO (17:39)
[2022-05-13] MEDS: THIAMINE 100 MG TABLET PO (20:33)
[2022-05-14] VITALS (11 sets, daily range): BP systolic 112–141; BP diastolic 53–84; PULSE 52–82; RESP 12–22; TEMP 36.6–37.5; O2SAT 91–96
[2022-05-14] MEDS: HYDROmorphone 0.5 mg/0.5 ml inj IVP ×2 (02:30→05:50)
--- NOTE | 2022-05-14 05:43 | PC.NURSE ---
Patient is alert and oriented x4, vss, on 2L O2 and maintaining SPO2 in low 90's, drinking adequate fluids and voiding appropriately. He is up ad-lara, using bathroom toilet to void. Patient has spent this entire shift in bed other than using the bathroom. Patient has complained of 8/10 pain in upper posterior left side, per the patient Oxy is not helping with pain even at a 10mg dose so order placed yesterday for .2 - .5mg IV push Dilaudid and that appears to be working. Patient insists he needs a splint or brace wrap for ribs for help with pain and coughing. He received education from this sports writer about using a pillow as splint while coughing to help with pain. Patient has produced a very small amount of thick white sputum. Expiratory respirations are very audible and course sounding.
[2022-05-14] MEDS: SODIUM CHLORIDE 0.9 % (FLUSH) 10 ML SYRINGE 5 ML IVF ×3 (05:51→20:52)
[2022-05-14 07:03] LABS: Basophils Percent Auto 0.3 % (0.0-3.0); Eosinophils Percent Auto 0.4 % (0.0-7.0); Hematocrit 51.6 % (37.0-53.0); Hemoglobin* 16.8 gm/dL (13.5-17.5); Immature Granulocytes Pct Auto 0.1 %; Lymphocytes Percent Auto 14.3 % (20-44); Mean Corpuscular HGB Conc 33 gm/dL (32-36); Mean Corpuscular Hemoglobin 30 pg (26-34); Mean Corpuscular Volume 92 fL (80-100); Monocytes Percent Auto 14.9 % (0.0-11.0); Platelet Count* 207 K/uL (140-440); RDW Coefficient of Variation % 12.5 % (11.5-15.5); Red Blood Count 5.62 m/uL (4.30-5.90); White Blood Count* 14.43 K/uL (4.50-11.00)
[2022-05-14 07:15] LABS: Chloride* 97 mmol/L (96-114); Potassium* 4.1 mmol/L (3.6-5.1); Sodium* 134 mmol/L (135-149)
[2022-05-14 07:18] LABS: Blood Urea Nitrogen* 26 mg/dL (7-30); Calcium* 8.9 mg/dL (8.4-10.6); Carbon Dioxide* 30 mmol/L (20-32); Creatinine* 0.9 mg/dL (0.5-1.5); Est. Creatinine Clearance* 67.45; Estimated Glomerular Filt Rate 92 ml/min; Glucose* 145 mg/dL (60-115)
[2022-05-14 07:29] LABS: Slide Review Reflex No
--- NOTE | 2022-05-14 07:44 | CRLHL7_ITS ---
For Patients: As a result of the Cures Act, medical imaging exams and procedure reports are released immediately into your electronic medical record. You may view this report before your referring provider. If you have questions, please contact your health care provider. INDICATION: HYPOXIA AFTER RIB FRACTURES TECHNIQUE: Chest 2 views COMPARISON: 05/12/2022 FINDINGS: Fractures of the left 7th, 8th and 9th ribs. No pneumothorax. Increased parenchymal density within the right lower lobe. No pleural effusion. IMPRESSION: Left-sided rib fractures unchanged. No pneumothorax. Increased atelectasis or aspiration pneumonitis in the right lower lobe. Dictated by Abdiel Razo MD @ 05/14/2022 9:54:15 AM (Electronically Signed)
[2022-05-14] MEDS: NAPROXEN 250 MG TABLET PO ×2 (08:06→17:53)
[2022-05-14] MEDS: predniSONE 20 MG TABLET 40 MG PO (08:06)
[2022-05-14] MEDS: OXYCODONE 5 MG TABLET PO ×4 (08:19→20:50)
[2022-05-14] MEDS: LOSARTAN POTASSIUM 50 MG TABLET PO (09:09)
[2022-05-14] MEDS: FOLIC ACID 1 MG TABLET PO (09:09)
[2022-05-14] MEDS: MULTIVITAMIN/MINERALS 1 TABLET 1 TAB PO (09:09)
[2022-05-14] MEDS: METFORMIN 1,000 MG TABLET 1000 MG PO ×2 (09:09→20:50)
[2022-05-14] MEDS: atenoloL 25 MG TABLET PO (09:09)
[2022-05-14] MEDS: hydroCHLOROthiazide 25 MG TABLET PO (09:09)
--- NOTE | 2022-05-14 10:05 | RESP.RT ---
Patient sounds very wet and has coarse lung sounds. Patient uses an Aerobika frequently, but refuses to cough because of pain.
[2022-05-14] MEDS: BUPIVACAINE 0.25 %/EPI 1:200K 30 ml INJECTION (12:30)
--- NOTE | 2022-05-14 13:54 | PM.IMPN1 ---
Progress Note: A&P Assessment and plan (1) Multiple fractures of ribs of left side: Problem details: Traumatic rib fractures without other obvious injuries. Patient is developing respiratory complications due to pain. Encourage adequate pain management to allow coughing and deep breathing. Good pulmonary toilet. Local injection into the rib fractures with bupivacaine is done. Significant improvement in pain afterwards Status: Acute (2) COPD (chronic obstructive pulmonary disease): Problem details: Inhaled bronchodilators. Monitor for signs or symptoms suggesting COPD exacerbation Status: Acute (3) Acute respiratory distress: Problem details: Supplemental oxygen as needed Status: Acute (4) Pneumonia: Problem details: New right basilar infiltrate in the context of left rib fractures. Aspiration verses atelectasis. Initiate oral antibiotic with cefuroxime and monitor clinically. Status: Acute (5) Tobacco use disorder: Status: Acute Plan Continue in hospital for monitoring of respiratory status, supplemental oxygen, pain management. Time Spent With Patient Total time spent: Total time spent today is 40 minutes, 30 minutes in coordination of care discussing with patient, and other providers management rib fractures and hypoxic respiratory fair Subjective Date Seen: 05/14/22 Interval history: 71-year-old male seen in followup of hospitalization for rib fractures and hypoxic respiratory failure. Patient reports his pain is been intermittently severe and well controlled. He has been receiving IV opioids for pain control. Finds that if he waits too long between doses the pain gets severe. He also finds that moving from supine to sitting to standing is also quite painful. He is still resisting coughing because of severe pain. Continues to require oxygen at 2 L per nasal cannula. He has had no fever. Exam Narrative: Exam Narrative: He is alert and appears in mild distress with increased work of breathing. He is also uncomfortable when I reposition in bed to examine him. Respirations with a few basilar crackles on the left and also a few on the right base. No wheezing. Fair air exchange in upper lung arango and on the right. Left base with diminished breath sounds. Cardiovascular: S1, S2, regular rate and rhythm. Abdomen is soft without tenderness except for I palpate his left upper quadrant he has rib pain in the back. Extremities without edema. Const: Vital Signs, click to edit/add: Vital Signs - 24 hr 05/13/22 15:41 05/13/22 15:41 05/13/22 19:00 Temperature 98.6 F 99.1 F Pulse Rate [Apical ] 65 61 Pulse Rate [Left A pical] Respiratory Rate 20 20 12 Blood Pressure [Ri ght Arm] 150/71 H 123/67 Pulse Oximetry 92 92 91 Oxygen Delivery Me thod Nasal Cannula Nasal Cannula Nasal Cannula Oxygen Flow Rate 2 2 2 Fraction of Inspir ed Oxygen 05/13/22 22:56 05/13/22 22:58 05/13/22 22:58 Temperature 99.1 F Pulse Rate [Apical ] 61 61 Pulse Rate [Left A pical] Respiratory Rate 12 12 Blood Pressure [Ri ght Arm] 123/67 Pulse Oximetry 91 91 Oxygen Delivery Me thod Nasal Cannula Nasal Cannula Oxygen Flow Rate 2 2 Fraction of Inspir ed Oxygen 05/13/22 23:40 05/14/22 02:37 05/14/22 02:51 Temperature 98.8 F 98.8 F 98.8 F Pulse Rate [Apical ] 68 52 L 52 L Pulse Rate [Left A pical] Respiratory Rate 12 12 12 Blood Pressure [Ri ght Arm] 118/73 132/84 132/84 Pulse Oximetry 95 96 96 Oxygen Delivery Me thod Nasal Cannula Nasal Cannula Nasal Cannula Oxygen Flow Rate 2 2 2 Fraction of Inspir ed Oxygen 05/14/22 03:04 05/14/22 05:40 05/14/22 07:00 Temperature Pulse Rate [Apical ] 61 Pulse Rate [Left A pical] Respiratory Rate 12 Blood Pressure [Ri ght Arm] Pulse Oximetry 91 93 Oxygen Delivery Me thod Nasal Cannula Nasal Cannula Oxygen Flow Rate 2 2 Fraction of Inspir ed Oxygen 05/14/22 07:45 05/14/22 12:15 05/14/22 07:45 Temperature 99.5 F 98.2 F 99.5 F Pulse Rate [Apical ] 82 Pulse Rate [Left A pical] 82 82 57 L Respiratory Rate 22 20 22 Blood Pressure [Ri ght Arm] 141/67 H 131/67 131/67 Pulse Oximetry 93 94 95 Oxygen Delivery Me thod Nasal Cannula Room Air Oxygen Flow Rate 2 2 2 Fraction of Inspir ed Oxygen 05/14/22 12:15 Temperature 98.2 F Pulse Rate [Apical ] Pulse Rate [Left A pical] 57 L Respiratory Rate 20 Blood Pressure [Ri ght Arm] 131/67 Pulse Oximetry 94 Oxygen Delivery Me thod Nasal Cannula Oxygen Flow Rate 2 Fraction of Inspir ed Oxygen Documenting provider has reviewed patient's vital signs: yes Labs Labs: Laboratory Results - last 24 hr 05/14/22 05/14/22 06:18 06:18 WBC 14.43 H RBC 5.62 Hgb 16.8 Hct 51.6 MCV 92 MCH 30 MCHC 33 RDW Coeff of Alex 12.5 Plt Count 207 Neut % (Auto) 70.0 Lymph % (Auto) 14.3 L [place] % (Auto) 14.9 H Eos % (Auto) 0.4 Baso % (Auto) 0.3 Neut # (Auto) 10.10 H Lymph # (Auto) 2.10 [place] # (Auto) 2.20 H Eos # (Auto) 0.10 Baso # (Auto) 0.00 Sodium 134 L Potassium 4.1 Chloride 97 Carbon Dioxide 30 BUN 26 Creatinine 0.9 Estimated Creat Clear 67.45 Estimated GFR 92 Glucose 145 H Calcium 8.9
--- NOTE | 2022-05-14 14:16 | PM.PROC ---
Procedure Note Date Seen: 05/14/22 Date of procedure: 05/14/22 Will [facility] bill your pro fee for this procedure?: Yes Pre-op diagnosis: Left-sided posterior fractures of ribs 7 8 and 9 Post-op diagnosis: same Procedure: Local anesthetic injection into rib fractures. Procedure Description: Discussed with patient's options for management of his pain. In this case given the severity of his pain and potential complications of uncontrolled pain from rib fractures he agreed to proceed with local injection of anesthetic for pain relief at the side of the rib fractures. Risks and benefits discussed and he gives rule consent. Area is prepped with Betadine. 0.25% Marcaine with epinephrine is infiltrated into each rib at the site of the fracture, site of maximum tenderness on palpation. 10 mL of lidocaine was used with approximately 1/3 of that going into each rib fracture. With this he had significant improvement in his pain within minutes. No apparent complications Anesthesia: none Surgeon: Irving Dimas MD Estimated blood loss (mL): 0 Pathology: none sent Condition: stable
--- NOTE | 2022-05-14 15:30 | PC.NURSE ---
Pt c/o posterior rib pain 7-8 out of 10 at initial assessment. Pt appears uncomfortable, beads of sweat on forehead, slow movements for repositioning. Oxygen @ 2L/NC. Scheduled Naprosyn provided followed by oxycodone 10mg PO with am med pass. Eval by RT, OT, PT, Dr. Dimas and myself on day shift. Pt taken to x-ray via w/c for repeat chest film. UAL in room w/oxygen on and extension tubing. CIWA scores did not trigger ativan protocol. Pt encouraged to use aerobika, splint when he does his deep breathing and coughing. Dr. Dimas injected the area of rib fractures w/medication to decrease pt's pain level while Lili present at bedside. He later stated his pain was 4 out of 10. Oxycodone 5mg PO given with pt's lunch and he was able to walk in the hallway with 2L/oxygen via NC. He appears much calmer and is moving more easily this afternoon. Please see eMar for other medications given to patient on day shift. Report to Neha CAMACHO for evening shift.
[2022-05-14] MEDS: MONTELUKAST 10 MG TABLET PO (17:52)
[2022-05-14] MEDS: ATORVASTATIN CALCIUM 40 MG TABLET 80 MG PO (17:52)
[2022-05-14] MEDS: THIAMINE 100 MG TABLET PO (19:24)
[2022-05-14] MEDS: IPRAT-ALBUT 0.5-2.5 MG/3 ML NEB 1 NEB IH ×2 (19:24→23:27)
--- NOTE | 2022-05-14 21:14 | PC.NURSE ---
Shift Note [id number]: Pt moving independently throughout his room without difficulty. Continues to require 2L/O2 via NC, SpO2 93-94%. He does dip to 88-89% with prolonged exertion. With ARGENIS assistance, pt walked throughout the unit approximately 200ft. Rated pain to left posterior ribs as high as 8/10, he verbalized injection earlier today helped quite a bit but had begun to wear off around supper time. 10mg Oxy given PO as well as icepack and pt verbalized this improved his discomfort to about 4/10. Encouraged TCDB and frequent repositioning. LS coarse on inspiration and expiration, worse in left sided base. PRN duo-neb x2. CIWA assessments unremarkable.
[2022-05-15 02:55] VITALS: BP 113/69; PULSE 56; RESP 14; TEMP 36.9; O2SAT 96
[2022-05-15] MEDS: OXYCODONE 5 MG TABLET PO ×5 (05:45→23:02)
--- NOTE | 2022-05-15 06:49 | PC.NURSE ---
Pt alert and oriented x3. Pt reports denies, chest pain, and N/V. Pt reports pain 7/10 pain in back and right side, pain managed with applying Ice packs to back, and PRN oxycodone.?Pt breath sounds have inspiratory and expiratory wheezes, pt anterior and posterior lung sounds have inspiratory and expiratory rhonchi and are course, and pt has intermittent moist?cough with no production. Overnight pt?s O2 sats were between 95-98%,?PRN neb was given per pt request for SOB.?Pt is currently?on 2L. Pt is up SBA/IND in room. Pt is tolerating a regular diet.? Pt slept throughout night.
[2022-05-15 06:59] LABS: Basophils Absolute Auto 0.05 K/uL (0.00-0.30); Basophils Percent Auto 0.5 % (0.0-3.0); Eosinophils Percent Auto 0.9 % (0.0-7.0); Hematocrit 47.5 % (37.0-53.0); Hemoglobin* 15.7 gm/dL (13.5-17.5); Immature Granulocytes Abs Auto 0.02 K/uL (0.00-0.30); Immature Granulocytes Pct Auto 0.2 %; Lymphocytes Percent Auto 19.7 % (20-44); Mean Corpuscular HGB Conc 33 gm/dL (32-36); Mean Corpuscular Hemoglobin 31 pg (26-34); Mean Corpuscular Volume 92 fL (80-100); Monocytes Percent Auto 14.7 % (0.0-11.0); Neutrophils Absolute Auto 6.76 K/uL (1.7-7.0); Platelet Count* 187 K/uL (140-440); RDW Coefficient of Variation % 12.4 % (11.5-15.5); Red Blood Count 5.15 m/uL (4.30-5.90); White Blood Count* 10.56 K/uL (4.50-11.00)
[2022-05-15 07:02] LABS: Slide Review Reflex No
[2022-05-15] MEDS: NAPROXEN 250 MG TABLET PO ×2 (07:38→17:32)
[2022-05-15 07:40] VITALS: BP 131/101; PULSE 68; RESP 20; TEMP 37.1; O2SAT 94
[2022-05-15] MEDS: predniSONE 20 MG TABLET 40 MG PO (07:52)
[2022-05-15] MEDS: LOSARTAN POTASSIUM 50 MG TABLET PO (09:18)
[2022-05-15] MEDS: SODIUM CHLORIDE 0.9 % (FLUSH) 10 ML SYRINGE 5 ML IVF ×2 (09:18→21:05)
[2022-05-15] MEDS: hydroCHLOROthiazide 25 MG TABLET PO (09:18)
[2022-05-15] MEDS: DOCUSATE SODIUM 100 MG CAPSULE PO (09:18)
[2022-05-15] MEDS: METFORMIN 1,000 MG TABLET 1000 MG PO ×2 (09:19→21:05)
[2022-05-15] MEDS: FOLIC ACID 1 MG TABLET PO (09:19)
[2022-05-15] MEDS: atenoloL 25 MG TABLET PO (09:19)
[2022-05-15] MEDS: MULTIVITAMIN/MINERALS 1 TABLET 1 TAB PO (09:19)
--- NOTE | 2022-05-15 11:31 | P.IMPN_ITS ---
Progress Note: A&P Assessment and plan (1) Multiple fractures of ribs of left side: Problem details: Traumatic rib fractures without other obvious injuries. Patient is developing respiratory complications due to pain. Encourage adequate pain management to allow coughing and deep breathing. Good pulmonary toilet. Local injection into the rib fractures with bupivacaine is repeated a 2nd time today. Significant improvement in pain afterwards Status: Acute (2) COPD (chronic obstructive pulmonary disease): Problem details: Inhaled bronchodilators. Monitor for signs or symptoms suggesting COPD exacerbation Status: Acute (3) Acute respiratory distress: Problem details: Supplemental oxygen as needed Status: Acute (4) Pneumonia: Problem details: New right basilar infiltrate in the context of left rib fractures. Aspiration verses atelectasis. Initiate oral antibiotic with cefuroxime and monitor clinically. Status: Acute (5) Tobacco use disorder: Status: Acute Plan Continue in-hospital for pulmonary care, pain management and supplemental oxygen. Time Spent With Patient Total time spent: Total time spent today is 30 minutes, 20 minutes in coordination care and discussing with patient ongoing management of rib fractures and hypoxia Subjective Date Seen: 05/15/22 Interval history: 71-year-old male seen in followup of left rib fractures, on pneumonia, hypoxic respiratory failure. Patient received bupivacaine injection into the rib fractures yesterday. He got quite good relief of his pain with this but it only lasted about 6 hours. He does feel overall he is doing better today despite the bupivacaine wearing off. Feels like he has less rattle in his chest when he is breathing. He still requiring 2 L per nasal cannula to keep his O2 sats at 90%. He has felt warm and cold but has not had a documented fever. He has been able to walk in the hallway better yesterday and today than he did the days before. Exam Narrative: Exam Narrative: He is alert and appears more comfortable today. He does not have the audible rattle with his breathing today. Respirations with a few basilar crackles bilaterally. Improved compared to yesterday. Fair air exchange in all lung arango. No wheezing or prolonged expiratory phase. Cardiovascular: S1, S2, regular rate and rhythm. Abdomen is soft without tenderness or mass. Extremities with 1+ edema bilaterally. Palpation over his back shows tenderness in the same area basically directly below the lower angle of the scapula on the left. I discussed with him options for management of this and he again requests a repeat injection of the bupivacaine. Three sites of rib fractures were identified by palpation. Skin was cleaned with Betadine and approximately 3-1/3 mL of bupivacaine with epinephrine were infiltrated over each of the 3 fractured ribs. He tolerated this well. Const: Vital Signs, click to edit/add: Vital Signs - 24 hr 05/14/22 12:15 05/14/22 12:15 05/14/22 15:00 Temperature 98.2 F 98.2 F 98 F Pulse Rate [Left A pical] 82 57 L 57 L Respiratory Rate 20 20 20 Blood Pressure [Ri ght Arm] 131/67 131/67 127/54 L Pulse Oximetry 94 94 93 Oxygen Delivery Me thod Nasal Cannula Nasal Cannula Oxygen Flow Rate 2 2 2 05/14/22 15:00 05/14/22 15:00 05/14/22 19:00 Temperature 98.1 F Pulse Rate [Left A pical] 57 L 60 Respiratory Rate 20 20 20 Blood Pressure [Ri ght Arm] 134/57 L Pulse Oximetry 93 94 Oxygen Delivery Me thod Nasal Cannula Nasal Cannula Oxygen Flow Rate 2 2 05/14/22 19:00 05/14/22 23:31 05/14/22 23:00 Temperature 98.2 F Pulse Rate [Left A pical] 52 L 52 L Respiratory Rate 20 20 Blood Pressure [Ri ght Arm] 112/53 L Pulse Oximetry 94 92 Oxygen Delivery Me thod Nasal Cannula Oxygen Flow Rate 2 05/14/22 23:00 05/15/22 02:55 05/15/22 07:40 Temperature 98.4 F Pulse Rate [Left A pical] 56 L Respiratory Rate 20 14 20 Blood Pressure [Ri ght Arm] 113/69 Pulse Oximetry 92 96 94 Oxygen Delivery Me thod Nasal Cannula Nasal Cannula Nasal Cannula Oxygen Flow Rate 2 2 2 05/15/22 07:40 05/15/22 07:40 05/15/22 07:40 Temperature 98.7 F 98.7 F Pulse Rate [Left A pical] 68 68 Respiratory Rate 20 Blood Pressure [Ri ght Arm] 131/101 H 131/101 H Pulse Oximetry 94 94 94 Oxygen Delivery Me thod Nasal Cannula Nasal Cannula Oxygen Flow Rate 2 2 Documenting provider has reviewed patient's vital signs: yes Labs Labs: Laboratory Results - last 24 hr 05/15/22 06:15 WBC 10.56 RBC 5.15 Hgb 15.7 Hct 47.5 MCV 92 MCH 31 MCHC 33 RDW Coeff of Alex 12.4 Plt Count 187 Neut % (Auto) 64.0 Lymph % (Auto) 19.7 L [place] % (Auto) 14.7 H Eos % (Auto) 0.9 Baso % (Auto) 0.5 Neut # (Auto) 6.76 Lymph # (Auto) 2.10 [place] # (Auto) 1.60 H Eos # (Auto) 0.10 Baso # (Auto) 0.05
[2022-05-15 12:20] VITALS: BP 111/55; PULSE 58; RESP 20; TEMP 36.6; O2SAT 92
--- NOTE | 2022-05-15 14:26 | PC.NURSE ---
Pt's CIWA scores 0 at initial assessment and score 0 again with afternoon VS. BP elevated at initial assessment however pt was experiencing pain. F/up bp after Naprosyn and oxycodone 10 mg in addition to Dr. Dimas injecting rib area was 111/55. Pt remains UAL in room with oxygen at 2L/NC. Eval by RT, PT and OT on day shift. Anterior lung sounds have improved airflow this afternoon, less coarse sounding. Pt had a brief nap after lunch. RN repeated oxycodone 10 mg at 1407 for pain 6 out of 10. Pt may have ice prn to Left lower back when he is supine. Report will be given to oncoming shift.
[2022-05-15 15:00] VITALS: BP 120/58; PULSE 61; RESP 20; TEMP 36.9; O2SAT 93
[2022-05-15] MEDS: ATORVASTATIN CALCIUM 40 MG TABLET 80 MG PO (17:31)
[2022-05-15] MEDS: MONTELUKAST 10 MG TABLET PO (17:31)
[2022-05-15 19:00] VITALS: BP 150/67; PULSE 70; RESP 20; TEMP 37.1; O2SAT 92
[2022-05-15] MEDS: IPRAT-ALBUT 0.5-2.5 MG/3 ML NEB 1 NEB IH (21:09)
--- NOTE | 2022-05-15 22:35 | PC.NURSE ---
End of Shift: Patient pleasant and cooperative. Afebrile. Rating pain in left side 5-6/10 and PRN Oxycodone given x2. Up independently in room. O2 sats above 90% on 1L NC at rest. Walked in hallway x1 this shift and O2 sats 87-89% on 1L and 94% on 2L. Tolerating regular diet with no nausea.
[2022-05-15 23:15] VITALS: BP 153/75; PULSE 68; PULSE 70; RESP 20; TEMP 37.1; O2SAT 92; O2SAT 93
[2022-05-16] VITALS (9 sets, daily range): BP systolic 115–142; BP diastolic 64–113; PULSE 59–69; RESP 18–20; TEMP 36.6–37.2; O2SAT 89–94
[2022-05-16] MEDS: OXYCODONE 5 MG TABLET PO ×6 (03:02→23:37)
--- NOTE | 2022-05-16 06:49 | PC.NURSE ---
Pt alert and oriented x3. Afebrile. Pt denies, chest pain, and N/V. Pt reports pain 7/10 pain in back and right side, pain managed with applying Ice packs to back, and PRN oxycodone.?Pt breath sounds have inspiratory and expiratory wheezes, pt anterior and posterior lung sounds have inspiratory and expiratory rhonchi and are course, and pt has intermittent moist?cough with brown/yellow?production, pt has been educated and encouraged to use aerobika. Overnight pt?s O2 sats were between 93-96%.?Pt is currently?on 1L. Pt is up SBA/IND in room. Pt is tolerating a regular diet.?Pt slept intermittently
[2022-05-16 06:50] LABS: Basophils Absolute Auto 0.04 K/uL (0.00-0.30); Basophils Percent Auto 0.4 % (0.0-3.0); Eosinophils Absolute Auto 0.14 K/uL (0.00-0.50); Eosinophils Percent Auto 1.3 % (0.0-7.0); Hematocrit 46.7 % (37.0-53.0); Hemoglobin* 15.3 gm/dL (13.5-17.5); Immature Granulocytes Abs Auto 0.02 K/uL (0.00-0.30); Immature Granulocytes Pct Auto 0.2 %; Lymphocytes Absolute Auto 2.23 K/uL (0.90-2.90); Mean Corpuscular HGB Conc 33 gm/dL (32-36); Mean Corpuscular Hemoglobin 31 pg (26-34); Mean Corpuscular Volume 93 fL (80-100); Monocytes Percent Auto 13.9 % (0.0-11.0); Neutrophils Absolute Auto 6.73 K/uL (1.7-7.0); Neutrophils Percent Auto 63.2 % (42.0-72.0); Platelet Count* 208 K/uL (140-440); RDW Coefficient of Variation % 12.2 % (11.5-15.5); Red Blood Count 5.02 m/uL (4.30-5.90); White Blood Count* 10.64 K/uL (4.50-11.00)
[2022-05-16 07:18] LABS: Slide Review Reflex No
[2022-05-16] MEDS: predniSONE 20 MG TABLET 40 MG PO (07:37)
[2022-05-16] MEDS: NAPROXEN 250 MG TABLET PO ×2 (07:38→19:11)
[2022-05-16] MEDS: atenoloL 25 MG TABLET PO (08:18)
[2022-05-16] MEDS: METFORMIN 1,000 MG TABLET 1000 MG PO ×2 (08:18→19:12)
[2022-05-16] MEDS: FOLIC ACID 1 MG TABLET PO (08:19)
[2022-05-16] MEDS: SODIUM CHLORIDE 0.9 % (FLUSH) 10 ML SYRINGE 5 ML IVF ×2 (08:19→21:21)
[2022-05-16] MEDS: hydroCHLOROthiazide 25 MG TABLET PO (08:19)
[2022-05-16] MEDS: MULTIVITAMIN/MINERALS 1 TABLET 1 TAB PO (08:19)
[2022-05-16] MEDS: LOSARTAN POTASSIUM 50 MG TABLET PO (08:19)
--- NOTE | 2022-05-16 10:22 | PC.NURSE ---
End of shift- [id number]: Pleasant and cooperative, alert and oriented patient. VSS and pt is afebrile. SPO2 maintained >90% on 1.5L per n.c. Pain in left ribs is well controlled with Oxycodone and scheduled Naproxen. LS coarse with rhonchi throughout. Pt c/o productive cough with greenish sputum. He denied nausea and ate 100% of a regular breakfast without difficulty and stated a normal BM this morning. He was up to the BR and in room independently and tolerated it well. Report to oncoming shift.
--- NOTE | 2022-05-16 12:41 | PM.IMPN1 ---
Progress Note: A&P Assessment and plan (1) Multiple fractures of ribs of left side: Problem details: Traumatic rib fractures without other obvious injuries. Patient is developing respiratory complications due to pain. Encourage adequate pain management to allow coughing and deep breathing. Good pulmonary toilet. Status: Acute (2) COPD (chronic obstructive pulmonary disease): Problem details: Inhaled bronchodilators. Monitor for signs or symptoms suggesting COPD exacerbation. Status: Acute (3) Acute respiratory distress: Problem details: Supplemental oxygen as needed. Status: Acute (4) Pneumonia: Problem details: New right basilar infiltrate in the context of left rib fractures. Aspiration verses atelectasis. Initiate oral antibiotic with cefuroxime and monitor clinically. Status: Acute (5) Tobacco use disorder: Status: Acute (6) Sleep apnea: Problem details: Clinically suspected to have sleep apnea based on exam as well as history of snoring and waking himself up at night Status: Suspected Plan Continue in-hospital for treatment with oxygen, monitoring of respiratory status, pain management. Anticipate discharge to home in the next 1-2 days. Time Spent With Patient Total time spent: 30 minutes, 20 minutes in coordination of care discussing with patient other providers ongoing evaluation management of rib fractures and pain Subjective Date Seen: 05/16/22 Interval history: 71-year-old male seen in followup of left rib fractures, on pneumonia, hypoxic respiratory failure. Patient received bupivacaine injection into the rib fractures the last 2 days. He got quite good relief of his pain with this. He does feel overall he is doing better today despite the bupivacaine wearing off. Feels like he has less rattle in his chest when he is breathing. He still requiring 2 L per nasal cannula to keep his O2 sats at 90%. He has felt warm and cold but has not had a documented fever. He has been able to walk in the hallway better yesterday and today than he did the days before. Exam Narrative: Exam Narrative: He is alert and appears in no distress. He does have a slight rattle with his breathing again today. He is breathing comfortably with supplemental oxygen. Respirations with bibasilar crackles still present. No wheezing. Is fair air exchange in all lung arango. Cardiovascular: S1, S2, regular rate and rhythm. Abdomen is soft without tenderness or mass. Extremities without edema. Const: Vital Signs, click to edit/add: Vital Signs - 24 hr 05/15/22 15:00 05/15/22 15:00 05/15/22 15:00 Temperature 98.5 F 98.5 F Pulse Rate [Left A pical] 61 61 Respiratory Rate 20 20 Blood Pressure [Ri ght Arm] 120/58 L 120/58 L Pulse Oximetry 93 93 93 Oxygen Delivery Me thod Nasal Cannula Nasal Cannula Nasal Cannula Oxygen Flow Rate 2 2 2 05/15/22 15:00 05/15/22 19:00 05/15/22 23:15 Temperature 98.8 F Pulse Rate [Left A pical] 61 70 70 Respiratory Rate 20 20 20 Blood Pressure [Ri ght Arm] 150/67 H Pulse Oximetry 92 Oxygen Delivery Me thod Nasal Cannula Oxygen Flow Rate 1 05/15/22 23:15 05/15/22 23:15 05/16/22 03:00 Temperature 98.8 F 97.9 F Pulse Rate [Left A pical] 68 59 L Respiratory Rate 20 20 18 Blood Pressure [Ri ght Arm] 153/75 H 115/89 Pulse Oximetry 92 93 92 Oxygen Delivery Me thod Nasal Cannula Nasal Cannula Nasal Cannula Oxygen Flow Rate 1 1 1 05/16/22 08:10 05/16/22 08:16 05/16/22 07:00 Temperature 98.8 F Pulse Rate [Left A pical] 68 Respiratory Rate 20 20 Blood Pressure [Ri ght Arm] 133/75 Pulse Oximetry 90 89 90 Oxygen Delivery Me thod Nasal Cannula Nasal Cannula Oxygen Flow Rate 1 1.5 05/16/22 07:00 05/16/22 11:00 Temperature 97.9 F Pulse Rate [Left A pical] 68 60 Respiratory Rate 20 20 Blood Pressure [Ri ght Arm] 124/91 H Pulse Oximetry 93 Oxygen Delivery Me thod Nasal Cannula Oxygen Flow Rate 1 Documenting provider has reviewed patient's vital signs: yes Labs Labs: Laboratory Results - last 24 hr 05/16/22 05:58 WBC 10.64 RBC 5.02 Hgb 15.3 Hct 46.7 MCV 93 MCH 31 MCHC 33 RDW Coeff of Alex 12.2 Plt Count 208 Neut % (Auto) 63.2 Lymph % (Auto) 21.0 [place] % (Auto) 13.9 H Eos % (Auto) 1.3 Baso % (Auto) 0.4 Neut # (Auto) 6.73 Lymph # (Auto) 2.23 [place] # (Auto) 1.50 H Eos # (Auto) 0.14 Baso # (Auto) 0.04
--- NOTE | 2022-05-16 14:29 | PC.NURSE ---
End of Shift: Patient pleasant and cooperative. Afebrile. Able to wean off O2 and sats 91-92% while awake. Up independently in room. Tolerating regular diet with no nausea.
--- NOTE | 2022-05-16 19:05 | PC.NURSE ---
Patient continues to experience pain in ribs. Pain controlled with prn oxycodone every 4 hours. Patient on room air. Patient able to ambulate independently. Patient vitally stable. patient able to voice concerns. Patient with good appetite.
[2022-05-16] MEDS: MONTELUKAST 10 MG TABLET PO (19:11)
[2022-05-16] MEDS: ATORVASTATIN CALCIUM 40 MG TABLET 80 MG PO (21:20)
[2022-05-16] MEDS: IPRAT-ALBUT 0.5-2.5 MG/3 ML NEB 1 NEB IH (21:21)
[2022-05-17] MEDS: OXYCODONE 5 MG TABLET PO ×3 (03:45→11:22)
[2022-05-17 03:50] VITALS: BP 145/83; PULSE 57; RESP 22; TEMP 36.9; O2SAT 93
--- NOTE | 2022-05-17 06:25 | PC.NURSE ---
[id number]: Patient cooperative with cares. Pain controlled with PRN Oxycodone and active ice. Independent in room. Using Aerobika independently. Denies SOB/Chest Pain.
[2022-05-17 07:00] VITALS: BP 141/88; PULSE 55; RESP 20; TEMP 36.7; O2SAT 94
[2022-05-17 07:35] LABS: Basophils Absolute Auto 0.04 K/uL (0.00-0.30); Basophils Percent Auto 0.4 % (0.0-3.0); Eosinophils Percent Auto 2.1 % (0.0-7.0); Hematocrit 45.9 % (37.0-53.0); Immature Granulocytes Abs Auto 0.02 K/uL (0.00-0.30); Immature Granulocytes Pct Auto 0.2 %; Lymphocytes Percent Auto 24.7 % (20-44); Mean Corpuscular HGB Conc 33 gm/dL (32-36); Mean Corpuscular Hemoglobin 30 pg (26-34); Mean Corpuscular Volume 93 fL (80-100); Monocytes Percent Auto 14.4 % (0.0-11.0); Neutrophils Absolute Auto 5.41 K/uL (1.7-7.0); Neutrophils Percent Auto 58.2 % (42.0-72.0); Platelet Count* 194 K/uL (140-440); RDW Coefficient of Variation % 12.1 % (11.5-15.5); Red Blood Count 4.94 m/uL (4.30-5.90); White Blood Count* 9.31 K/uL (4.50-11.00)
[2022-05-17 07:45] LABS: Slide Review Reflex No
[2022-05-17] MEDS: hydroCHLOROthiazide 25 MG TABLET PO (07:59)
[2022-05-17] MEDS: NAPROXEN 250 MG TABLET PO (07:59)
[2022-05-17] MEDS: METFORMIN 1,000 MG TABLET 1000 MG PO (07:59)
[2022-05-17] MEDS: predniSONE 20 MG TABLET 40 MG PO (07:59)
[2022-05-17] MEDS: FOLIC ACID 1 MG TABLET PO (07:59)
[2022-05-17] MEDS: atenoloL 25 MG TABLET PO (08:00)
[2022-05-17] MEDS: SODIUM CHLORIDE 0.9 % (FLUSH) 10 ML SYRINGE 5 ML IVF (08:01)
[2022-05-17] MEDS: MULTIVITAMIN/MINERALS 1 TABLET 1 TAB PO (08:01)
[2022-05-17] MEDS: LOSARTAN POTASSIUM 50 MG TABLET PO (08:01)
[2022-05-17 09:59] VITALS: BP 125/68; PULSE 50; RESP 20; TEMP 36.7
--- NOTE | 2022-05-17 14:22 | PM.DS1 ---
DS: Providers Provider Date Seen: 05/17/22 Date of admission: 05/14/22 14:19 Primary care physician: Fiordaliza Gale DO Admitting Clinician: Chen Perea MD Attending Physician on discharge: Chen Perea MD Date of Discharge: 05/17/22 DS: Diagnosis Discharge Diagnosis (1) Multiple fractures of ribs of left side: Status: Acute Problem details: Traumatic rib fractures without other obvious injuries. Patient is developing respiratory complications due to pain. Encourage adequate pain management to allow coughing and deep breathing. Encourage good pulmonary toilet. (2) COPD (chronic obstructive pulmonary disease): Status: Acute Problem details: Inhaled bronchodilators. Monitor for signs or symptoms suggesting COPD exacerbation. (3) Acute respiratory distress: Status: Acute Problem details: Supplemental oxygen as needed. (4) Pneumonia: Status: Acute Problem details: New right basilar infiltrate in the context of left rib fractures. Aspiration verses atelectasis. Initiate oral antibiotic with cefuroxime and monitor clinically. (5) Tobacco use disorder: Status: Acute Problem details: Encouraged cessation (6) Sleep apnea: Status: Suspected Problem details: Clinically suspected to have sleep apnea based on exam as well as history of snoring and waking himself up at night. Outpatient sleep study after rib fractures have healed. DS: Summary Hospital Course Hospital Course: Patient presented the emergency room after a fall on ice and severe left back pain. Evaluation showed fractures of left posterior ribs T7,8 and 9. He was admitted to the hospital for pain management and supplemental oxygen. He had clinical worsening over the 1st day of his hospital stay. Radiographs showed no change in the fractures but increased bibasilar infiltrates including possible pneumonia on the right. He was treated with cefuroxime for possible aspiration pneumonia. He required oxygen initially at 3 L per nasal cannula and was able to wean off oxygen over the subsequent 3 days. He received bupivacaine injections at the site of the rib fractures 2 consecutive days for pain management and respiratory distress management. This was quite beneficial. He was clinically suspected to have sleep apnea and recommended that he get outpatient testing for this once his rib fractures of resolved. Status at Discharge Functional status at discharge: independent ambulation Overall status at discharge: patient is progressing back to baseline Time Spent with Patient Time attestation: Total time spent providing and/or coordinating discharge services: Time spent: Greater than 30 minutes Exam Narrative: Exam Narrative: He is alert and appears in no distress. Breathing room air relatively comfortably. No rattle in his chest today. Respirations are clear to auscultation except for a few basilar crackles. Cardiovascular: S1, S2, regular rate and rhythm. Abdomen is soft without tenderness or mass. Const: Vital Signs, click to edit/add: Vital Signs - 24 hr 05/16/22 15:00 05/16/22 15:00 05/16/22 15:00 Temperature 98.6 F Pulse Rate Pulse Rate [Left A pical] 60 62 Respiratory Rate 20 18 18 Blood Pressure Blood Pressure [Ri ght Arm] 133/64 Pulse Oximetry 93 93 Oxygen Delivery Me thod Room Air Room Air 05/16/22 19:27 05/16/22 23:34 05/16/22 23:00 Temperature 98.9 F 97.9 F Pulse Rate Pulse Rate [Left A pical] 69 61 Respiratory Rate 18 20 20 Blood Pressure Blood Pressure [Ri ght Arm] 142/113 H 135/78 Pulse Oximetry 92 94 94 Oxygen Delivery Me thod Room Air Room Air Room Air 05/17/22 03:50 05/17/22 07:00 05/17/22 07:00 Temperature 98.5 F 98.0 F Pulse Rate Pulse Rate [Left A pical] 57 L 55 L Respiratory Rate 22 20 20 Blood Pressure Blood Pressure [Ri ght Arm] 145/83 H 141/88 H Pulse Oximetry 93 94 94 Oxygen Delivery Me thod Room Air Room Air Room Air 05/17/22 07:00 05/17/22 09:59 Temperature 98.0 F Pulse Rate 50 L Pulse Rate [Left A pical] Respiratory Rate 20 20 Blood Pressure 125/68 Blood Pressure [Ri ght Arm] Pulse Oximetry Oxygen Delivery Me thod DS: Data Data Completed and Pending Labs on day of discharge: Labs from last 24 hours 05/17/22 06:14 WBC 9.31 RBC 4.94 Hgb 15.0 Hct 45.9 MCV 93 MCH 30 MCHC 33 RDW Coeff of Alex 12.1 Plt Count 194 Neut % (Auto) 58.2 Lymph % (Auto) 24.7 [place] % (Auto) 14.4 H Eos % (Auto) 2.1 Baso % (Auto) 0.4 Neut # (Auto) 5.41 Lymph # (Auto) 2.30 [place] # (Auto) 1.30 H Eos # (Auto) 0.20 Baso # (Auto) 0.04 Discharge Plan Discharge Disposition: Home, Self-Care Date of Admission: 05/14/22 14:19 Attending Provider on Discharge: Irving Dimas Primary Care Provider: Fiordaliza Gale Condition: Improved Anticipated Discharge Date/Time: 05/17/22 08:48 Discharge Medications: New losartan 50 mg Tablet 50 mg PO DAILY Qty: 30 0RF cefuroxime axetil 500 mg Tablet 500 mg PO BIDWM Qty: 10 0RF senna 8.6 mg capsule 8.6 mg PO BID Qty: 30 0RF naproxen sodium [Aleve] 220 mg capsule 220 mg PO BID Qty: 30 0RF oxycodone 5 mg capsule 10 mg PO Q4H PRN (Reason: pain) Qty: 60 0RF albuterol sulfate 2.5 mg /3 mL (0.083 %) solution for nebulization 2.5 mg inhalation Q4-6H PRNQty: 90 0RF Continued atorvastatin 80 mg tablet 80 mg PO HS metformin 1,000 mg tablet 1,000 mg PO BID montelukast 10 mg tablet 10 mg PO HS hydrochlorothiazide 25 mg tablet 25 mg PO DAILY multivitamin Tablet 1 tab PO DAILY aspirin 81 mg tablet,chewable 81 mg PO DAILY Changed atenolol 50 mg tablet 25 mg PO DAILY Qty: 30 0RF Discharge Orders: Discharge Order (Routine); Ordered 05/17/22 Ordered By: Irving Dimas Patient Education: Cefuroxime (By mouth), Naproxen (By mouth), Albuterol (By breathing), Oxycodone, Rapid Release (By mouth), Losartan (By mouth), Senna (By mouth) (Sen, Senna-lax), Bacterial Pneumonia (DC) Activity Level: Activity as Tolerated Discharge Diet: Regular Follow Up Appointments: Fiordaliza Gale DO [Primary Care Provider] - 05/21/22 11:00 am ([facility]. Will see Dr. Gale for follow up next week for recheck of your rib fractures, breathing trouble, blood pressure and blood test, basic metabolic panel) Forms: [facility] Info Instructions
== END 2022-05-17 11:45 | disposition home or self-care (01) | DRG 183 ==
LOC: ED 16:31 → MEDSURG 17:15
PROVIDERS: Family Medicine; Admitting Provider Family Medicine; Emergency Provider Emergency Medicine; PCP Family Medicine; Visit Provider Family Medicine
DX: S22.42XA Multiple fractures of ribs, left side, initial encounter for closed fracture (principal); J69.0 Pneumonitis due to inhalation of food and vomit; J44.0 Chronic obstructive pulmonary disease with (acute) lower respiratory infection; R06.03 Acute respiratory distress; G47.30 Sleep apnea, unspecified; W00.0XXA Fall on same level due to ice and snow, initial encounter; I25.10 Atherosclerotic heart disease of native coronary artery without angina pectoris; I10 Essential (primary) hypertension; F17.210 Nicotine dependence, cigarettes, uncomplicated
CPT/HCPCS: 36415; 71045; 71046; 71260; 80048; 81001; 83605; 83880; 84484; 85025; 85379; 86140; 87086; 87502; 87634; 87635; 93005; 94640; 94664; 94761; 97110; 97116; 97161; 97165; 97535; 99284; 99285; A9153; A9270; G0378; J1170; J1940; J2270; J2405; J7030; J7512; Q9967; S4990

== ENCOUNTER 2022-05-27 13:06 | Emergency (ER) | payer OTHER, MEDICARE, SELFPAY ==
[2022-05-27 13:35] VITALS: BP 128/71; PULSE 62; RESP 16; TEMP 36.6; O2SAT 97; BMI 33.5
--- NOTE | 2022-05-27 13:45 | ED.GENADULT ---
HPI - General Adult General Time Seen by Provider: 13:46 Date Seen: 05/27/22 Chief complaint: Cough Stated complaint: Pneumonia Rib Pain Time Seen by Provider: 05/27/22 13:45 Source: patient, RN notes reviewed and old records reviewed Mode of arrival: ambulatory Limitations: no limitations History of Present Illness HPI narrative: Pasquale is a very pleasant 71-year-old male with history of COPD, pneumonia, recent multiple left-sided rib fractures who comes to the emergency room with worsening symptoms. Patient notes that after his initial rib injury on May 12 he was hospitalized for 6 days as his oxygen levels were very depressed. He states he was finally able to get them to 90% and go home. He was discharged home on oxycodone and went to see his primary MD on SaturdayMay 22. He states that he had been on oxycodone every 4 hours and that he definitely needed it. His physician stated that he she should probably switch to Advil. He did switch but it has not really helped his pain. He also ran out of his prednisone that day. His personal opinion on the prednisone as that did not really help excepted did ?wire him up?. He notes that since May 24 he has been having a harder time with breathing. He states he can not catch his breath and is especially worse when he just wakes up from sleeping. He has also noticed persistent lower extremity swelling in both feet and some calf tenderness. He has had some twitching in his chest and disc complains of not feeling well. He is wondering if he has gotten a pneumonia back as he discontinued his antibiotics during that time period as well. In summary patient is a 71-year-old male with multiple left-sided rib fractures on May 12, hospitalized for 6 days with complications of I proxy a now returning for increasing pain, shortness of breath since May 24. Patient has not had fever but states that he has felt like he has been occasionally chilled. He has not been vomiting and denies any anterior chest pain. CT from May 12:Nondisplaced fractures of the posterior left 7th, 8th, and 9th ribs. Related Data Home Medications Medication Instructions Recorded Confirmed atorvastatin 80 mg tablet 80 mg PO HS 05/12/22 05/13/22 hydrochlorothiazide 25 mg tablet 25 mg PO DAILY 05/12/22 05/12/22 metformin 1,000 mg tablet 1,000 mg PO BID 05/12/22 05/12/22 montelukast 10 mg tablet 10 mg PO HS 05/12/22 05/13/22 multivitamin 1 tab PO DAILY 05/12/22 05/12/22 aspirin 81 mg chewable tablet 81 mg PO DAILY 05/13/22 05/13/22 Previous Rx's Medication Instructions Recorded albuterol sulfate 2.5 mg/3 mL 2.5 mg (3 mL) inhalation Q4-6H PRN 05/17/22 (0.083 %) solution for nebulization #90 mL atenolol 50 mg tablet 25 mg PO DAILY #30 tabs 05/17/22 losartan 50 mg tablet 50 mg PO DAILY #30 tabs 05/17/22 naproxen sodium 220 mg capsule 220 mg PO BID pain #30 caps 05/17/22 (Aleve) sennosides 8.6 mg capsule (senna) 8.6 mg PO BID #30 caps 05/17/22 Allergies Allergy/AdvReac Type Severity Reaction Status Date / Time Penicillins Allergy Unknown Verified 05/12/22 12:01 Review of Systems Status of ROS: Reports: 10 or more systems reviewed and unremarkable except as noted in History and below Const: Reports: chills; Denies: fever or fatigue ENMT: Denies: throat pain, neck pain, throat swelling or hoarseness Cardio: Reports: chest pain, edema, swelling of feet/ankles and lightheadedness; Denies: palpitations or shortness of breath with exertion Resp: Denies: shortness of breath, cough or wheezing GI: Denies: abdominal pain, nausea or vomiting : Denies: painful urination Musculo: Denies: neck pain Integ/Breast: Denies: rash or redness Neuro: Denies: headache or numbness in extremities Endo: Denies: fatigue Allergy/Immuno: Denies: throat swelling or wheezing PFSH FOR[facility]LY [facility], [facility] Medical History Adenomatous colon polyp ?D12.6 - Benign neoplasm of colon, unspecified (ICD-10) Bradycardia ?R00.1 - Bradycardia, unspecified (ICD-10) Coronary atherosclerosis ?I25.10 - Atherosclerotic heart disease of [place] coronary artery without angina pectoris (ICD-10) DJD (degenerative joint disease) ?M19.90 - Unspecified osteoarthritis, unspecified site (ICD-10) Essential hypertension ?I10 - Essential (primary) hypertension (ICD-10) Impotence of organic origin ?N52.9 - Male erectile dysfunction, unspecified (ICD-10) Sleep apnea ?G47.30 - Sleep apnea, unspecified (ICD-10) Tobacco use disorder ?F17.200 - Nicotine dependence, unspecified, uncomplicated (ICD-10) Surgical History H/O arthroscopy of knee ?Z98.890 - Other specified postprocedural states (ICD-10) H/O colonoscopy (~03/2013) ?Z98.890 - Other specified postprocedural states (ICD-10) H/O esophagogastroduodenoscopy (~05/2020) ?Z98.890 - Other specified postprocedural states (ICD-10) History of bunionectomy ?Z98.890 - Other specified postprocedural states (ICD-10) Family History Father Colon cancer Mother Brain tumor Social History Narrative: Lives with , son, daughter, grandkids. Smokes half pack of cigarettes per day for the last 40 years. Drinks 3-4 cans of beer per day; 3 last night. Denies recreational drugs. Smoking Status: Current every day smoker What tobacco products do you use: cigarettes Smoking packs per day: 0.5 Smoking cigarettes per day: 10.0 Do you use any of these nicotine containing products: None Second hand tobacco smoke exposure: No How often do you have a drink containing alcohol: never How often do you have six or more drinks on one occasion: Never AUDIT-C Alcohol total score: 0 Non-prescribed substance use: denies use service: Yes Exam Narrative: Exam Narrative: Patient is alert and oriented. Very guarded in his movement. Mentating and speaking normally. Neck is supple. Heart with a regular rate and rhythm. Lungs are with decreased breath sounds in the bases bilaterally the left definitely worse than the right. No external signs of skin trauma and there is no subcutaneous emphysema on palpation. Lower extremity show 1+ peripheral edema. Calves hurt somewhat tender bilaterally. Moving all extremities. Abdomen is soft and nontender. Const: Vital Signs, click to edit/add: Vital Signs - 24 hr 05/27/22 13:35 05/27/22 14:51 05/27/22 15:59 Temperature 97.8 F Pulse Rate [Right Pulse Oximeter] 62 97 54 L Respiratory Rate 16 18 Blood Pressure [Ri ght Upper Arm] 128/71 116/59 L Pulse Oximetry 97 97 Oxygen Delivery Me thod Room Air Documenting provider has reviewed patient's vital signs: yes Course Course Hospital Course: Patient will have IV placed and labs to include a CBC, comprehensive, CRP, troponin, EKG, chest x-ray, lower extremity Doppler. Will give patient morphine 4 mg and Zofran 4 mg for pain control at this time. Differential diagnosis includes but is not limited to pneumonia, pneumothorax, pleural effusion, chest wall pain, PE, DVT. Reevaluation(s) Reevaluation #1: Patient noted to have negative troponin. Currently awaiting CT of the chest. No evidence of a pleural effusion at this time. Reevaluation #2: Patient noted to be improved after morphine and Zofran. Patient had radiological over-read concerning for additional rib fractures not initially noted on CT from 05/12/2022. Patient agreeable to CT. Patient is informed that his troponin is negative. Vital Signs Vital signs: Initial Vital Signs Temperature 97.8 F 05/27/22 13:35 Temperature Source Temporal Artery Scan 05/27/22 13:35 Pulse Rate 62 05/27/22 13:35 Pulse Rhythm Regular 05/27/22 13:35 Respiratory Rate 16 05/27/22 13:35 Blood Pressure 128/71 05/27/22 13:35 Blood Pressure Mean 90 05/27/22 13:35 Pulse Oximetry 97 05/27/22 13:35 Oxygen Delivery Method Room Air 05/27/22 13:35 Vital Signs Temperature 97.8 F 05/27/22 13:35 Pulse Rate 62 05/27/22 13:35 Respiratory Rate 16 05/27/22 13:35 Blood Pressure 128/71 05/27/22 13:35 Pulse Oximetry 97 05/27/22 13:35 Oxygen Delivery Method Room Air 05/27/22 13:35 Temperature 97.8 F 05/27/22 13:35 Pulse Rate 54 L 05/27/22 15:59 Respiratory Rate 18 05/27/22 15:59 Blood Pressure 116/59 L 05/27/22 15:59 Pulse Oximetry 97 05/27/22 15:59 Oxygen Delivery Method Room Air 05/27/22 13:35 Medical Decision Making MDM Narrative Medical decision making narrative: 1. Shortness of breath-differential diagnosis does include pulmonary edema/congestive heart failure, PE, pain secondary to rib fractures. Chest x-ray showed additional fractures of ribs 5 and 6. However, this was not noted on the CT from 05/12/2022. Patient's vital signs have been reassuring with O2 sats at 97%. Mild elevation of proBNP. No evidence of lower extremity DVT. At this time CT of the chest is pending. 2. Chest pain secondary to rib fractures-suggestive CT is reassuring that patient be discharged with oxycodone. 3. Disposition-signed out to my partner Dr. Newton for further disposition. Also pending is a 2nd EKG and troponin. Medical Records Medical records reviewed: Yes I reviewed the patient's medical records Lab Data Lab results reviewed: Yes I reviewed the patient's lab results Labs: Lab Results 05/27/22 05/27/22 Range/Units 14:08 14:30 WBC 11.37 H (4.50-11.00) K/uL RBC 5.48 (4.30-5.90) m/uL Hgb 16.6 (13.5-17.5) gm/dL Hct 50.1 (37.0-53.0) % MCV 91 (80-100) fL MCH 30 (26-34) pg MCHC 33 (32-36) gm/dL RDW Coeff of Alex 12.1 (11.5-15.5) % Plt Count 310 (140-440) K/uL Neut % (Auto) 71.1 (42.0-72.0) % Lymph % (Auto) 15.8 L (20-44) % [place] % (Auto) 10.1 (0.0-11.0) % Eos % (Auto) 1.6 (0.0-7.0) % Baso % (Auto) 0.4 (0.0-3.0) % Neut # (Auto) 8.10 H (1.7-7.0) K/uL Lymph # (Auto) 1.80 (0.90-2.90) K/uL [place] # (Auto) 1.10 H (0.00-0.90) K/UL Eos # (Auto) 0.20 (0.00-0.50) K/uL Baso # (Auto) 0.00 (0.00-0.30) K/uL Sodium 139 (135-149) mmol/L Potassium 4.2 (3.6-5.1) mmol/L Chloride 101 (96-114) mmol/L Carbon Dioxide 32 (20-32) mmol/L BUN 12 (7-30) mg/dL Creatinine 0.8 (0.5-1.5) mg/dL Estimated Creat Clear 67.45 Estimated GFR 96 ml/min Glucose 119 H (60-115) mg/dL Calcium 9.4 (8.4-10.6) mg/dL Total Bilirubin 0.6 (0.1-1.5) mg/dL AST 24 (12-35) U/L ALT 32 (4-50) U/L Alkaline Phosphatase 87 (40-150) U/L C-Reactive Protein 0.7 (0.5-1.0) mg/dL NT-Pro-B Natriuret Pep 552 pg/mL Total Protein 7.5 (6.0-8.3) g/dL Albumin 4.3 (3.3-5.0) g/dL Urine Color Yellow (Yellow) Urine Appearance Clear (Clear) Urine pH 7.0 (5.0-8.5) Ur Specific [place] 1.015 (1.000-1.030) Urine Protein Negative (Negative) Urine Glucose (UA) Negative (Negative) Urine Ketones Negative (Negative) Urine Blood Negative (Negative) Urine Nitrite Negative (Negative) Urine Bilirubin Negative (Negative) Urine Urobilinogen 0.2 (0.2-1.0) Ur Leukocyte Esterase Negative (Negative) Urine RBC 0-2 (0-2) Urine WBC 0-2 (0-5) Ur Squamous Epith Cells Few (None-Few) Urine Bacteria None (None) SARS-CoV-2 (PCR) Negative SARS-CoV-2 (Negative) Influenza Type A (PCR) Negative PCR FLU A (Negative) Influenza Type B (PCR) Negative PCR FLU B (Negative) POC Troponin I 0.00 L (0.01-0.04) ng/ml Imaging Data Chest x-ray: Attestation: I have reviewed the pertinent imaging results. Radiologist's impression: Lung volumes are low with bibasilar atelectasis. No new focal or diffuse lung disease. No pleural effusion or definite pneumothorax. Compared to chest radiograph dated May 14, 2022, new left posterior 5th and 6th rib fractures. Re- demonstration left-sided 7th, 8th and 9th rib fractures which appear slightly more displaced. Impression: 1. Compared to chest radiograph dated May 14, 2022, new left posterior 5th and 6th rib fractures. Re- demonstration left-sided 7th, 8th and 9th rib fractures which appear slightly more displaced and may be seen in the setting of flail chest. 2. No pleural effusion or definite pneumothorax. ECG Data Attestation: I personally reviewed and interpreted this ECG as follows: Interpretation: EKG 1. By my read shows sinus bradycardia at a rate of 54. Q-waves are noted in V1 V2 V3 but they do not appear acute. However, they are new since May 12. In comparison with previous. Discharge Plan Discharge Clinical Impression: Multiple fractures of ribs of left side Prescriptions: No Action atorvastatin 80 mg tablet 80 mg PO HS metformin 1,000 mg tablet 1,000 mg PO BID montelukast 10 mg tablet 10 mg PO HS hydrochlorothiazide 25 mg tablet 25 mg PO DAILY multivitamin Tablet 1 tab PO DAILY aspirin 81 mg tablet,chewable 81 mg PO DAILY losartan 50 mg Tablet 50 mg PO DAILY Qty: 30 0RF senna 8.6 mg capsule 8.6 mg PO BID Qty: 30 0RF naproxen sodium [Aleve] 220 mg capsule 220 mg PO BID Qty: 30 0RF atenolol 50 mg tablet 25 mg PO DAILY Qty: 30 0RF albuterol sulfate 2.5 mg /3 mL (0.083 %) solution for nebulization 2.5 mg inhalation Q4-6H PRNQty: 90 0RF Follow Up/Referrals: Fiordaliza Gale DO [Primary Care Provider] -
--- NOTE | 2022-05-27 14:08 | CRLHL7_ITS ---
For Patients: As a result of the Cures Act, medical imaging exams and procedure reports are released immediately into your electronic medical record. You may view this report before your referring provider. If you have questions, please contact your health care provider. Indication: Increasing shortness of breath post rib fractures Technique: AP chest radiograph Comparison: Chest radiograph on May 14 and May 12, 2022. CT chest on May 12, 2022. Findings: Lung volumes are low with bibasilar atelectasis. No new focal or diffuse lung disease. No pleural effusion or definite pneumothorax. Compared to chest radiograph dated May 14, 2022, new left posterior 5th and 6th rib fractures. Re- demonstration left-sided 7th, 8th and 9th rib fractures which appear slightly more displaced. Impression: 1. Compared to chest radiograph dated May 14, 2022, new left posterior 5th and 6th rib fractures. Re- demonstration left-sided 7th, 8th and 9th rib fractures which appear slightly more displaced and may be seen in the setting of flail chest. 2. No pleural effusion or definite pneumothorax. Dictated by Xavi Houser MD @ 05/27/2022 2:59:16 PM (Electronically Signed)
--- NOTE | 2022-05-27 14:08 | CRLHL7_ITS ---
For Patients: As a result of the Century Cures Act, medical imaging exams and procedure reports are released immediately into your electronic medical record. You may view this report before your referring provider. If you have questions, please contact your health care provider. INDICATION: Bilateral lower extremity swelling post hospitalization. COMPARISON: Peroneal FINDINGS: Ultrasound of the venous drainage of both lower extremities was performed using real-time johnson scale imaging (B mode 2D), color flow Doppler and spectral analysis. There is no evidence of deep venous thrombosis. There is normal antegrade flow from the posterior tibial and popliteal veins superiorly through the common femoral vein in both legs. There is normal augmentation and compressibility of these veins. The greater saphenous veins in both superior and mid thighs are widely patent. IMPRESSION: No evidence of deep venous thrombosis on ultrasound examination of both lower extremities. Dictated by Dandre Parikh MD @ 05/27/2022 3:53:06 PM (Electronically Signed)
[2022-05-27 14:40] LABS: Appearance Urine Clear (Clear); Bilirubin Urine Negative (Negative); Blood Urine Negative (Negative); Color Urine Yellow (Yellow); Glucose Urine Negative (Negative); Ketones Urine Negative (Negative); Leukocyte Esterase Urine Negative (Negative); Nitrite Urine Negative (Negative); Protein Urine Negative (Negative); Specific Gravity Urine 1.015 (1.000-1.030); Urobilinogen Urine 0.2 (0.2-1.0)
[2022-05-27 14:43] LABS: Basophils Percent Auto 0.4 % (0.0-3.0); Eosinophils Percent Auto 1.6 % (0.0-7.0); Hematocrit 50.1 % (37.0-53.0); Hemoglobin* 16.6 gm/dL (13.5-17.5); Lymphocytes Percent Auto 15.8 % (20-44); Mean Corpuscular HGB Conc 33 gm/dL (32-36); Mean Corpuscular Hemoglobin 30 pg (26-34); Mean Corpuscular Volume 91 fL (80-100); Monocytes Percent Auto 10.1 % (0.0-11.0); Neutrophils Percent Auto 71.1 % (42.0-72.0); Platelet Count* 310 K/uL (140-440); RDW Coefficient of Variation % 12.1 % (11.5-15.5); Red Blood Count 5.48 m/uL (4.30-5.90); White Blood Count* 11.37 K/uL (4.50-11.00)
[2022-05-27] MEDS: ONDANSETRON 2 MG/ML inj 4 MG IVP (14:43)
[2022-05-27] MEDS: MORPHINE 4 MG/ML INJ IVP (14:43)
[2022-05-27 14:50] LABS: Slide Review Reflex No
[2022-05-27 14:51] VITALS: PULSE 97
[2022-05-27 14:51] LABS: RBC Urine 0-2 (0-2); Squamous Epithelial Cell Urine Few (None-Few); WBC Urine 0-2 (0-5)
[2022-05-27 15:00] LABS: Albumin* 4.3 g/dL (3.3-5.0); Chloride* 101 mmol/L (96-114); Potassium* 4.2 mmol/L (3.6-5.1); Sodium* 139 mmol/L (135-149)
[2022-05-27 15:02] LABS: Creatinine* 0.8 mg/dL (0.5-1.5); Est. Creatinine Clearance* 67.45; Estimated Glomerular Filt Rate 96 ml/min
[2022-05-27 15:03] LABS: Alanine Aminotransferase* 32 U/L (4-50); Alkaline Phosphatase* 87 U/L (40-150); Aspartate Amino Transferase* 24 U/L (12-35); Bilirubin Total* 0.6 mg/dL (0.1-1.5); Blood Urea Nitrogen* 12 mg/dL (7-30); Carbon Dioxide* 32 mmol/L (20-32); Total Protein* 7.5 g/dL (6.0-8.3)
[2022-05-27 15:04] LABS: Calcium* 9.4 mg/dL (8.4-10.6); Glucose* 119 mg/dL (60-115)
[2022-05-27 15:06] LABS: C Reactive Protein* 0.7 mg/dL (0.5-1.0)
[2022-05-27 15:14] LABS: NT Pro B Type NatriureticPept* 552 pg/mL
[2022-05-27 15:22] LABS: PCR FLU A Negative PCR FLU A (Negative); PCR FLU B Negative PCR FLU B (Negative)
[2022-05-27 15:24] LABS: SARS PCR* Negative SARS-CoV-2 (Negative)
[2022-05-27 15:59] VITALS: BP 116/59; PULSE 54; RESP 18; O2SAT 97
--- NOTE | 2022-05-27 16:30 | CRLHL7_ITS ---
For Patients: As a result of the Century Cures Act, medical imaging exams and procedure reports are released immediately into your electronic medical record. You may view this report before your referring provider. If you have questions, please contact your health care provider. INDICATION: Multiple rib fractures. Now with shortness of breath. COMPARISON: CT of the chest from 05/12/2022. TECHNIQUE: CT examination of the chest was performed with the uneventful intravenous administration of 95 cc of Isovue 370 while 1.5 mm thick axial sections were obtained from above the apices of the lungs through the mid renal level. Please note that all CT scans at this facility use dose modulation, iterative reconstruction, and/or weight-based dosing when appropriate to reduce radiation dose to as low as reasonably achievable. FINDINGS: : There are the fractures of the left posterior-lateral 5th through 10th ribs. The previously seen fractures of the 7th through 9th ribs are now displaced. There are mild pleural hematomas related to the fractures. There is no sign of pulmonary embolism, with normal enhancement and branching of the pulmonary arteries. There is a new mild left pleural effusion with new mild consolidative atelectasis of the posterior left lower lobe adjacent to the fusion. There is no sign of pneumothorax, pulmonary contusion, or pneumatocele to correlate with the history of chest trauma. There is no sign of mediastinal or hilar mass or adenopathy. Again seen is prominent triple-vessel coronary calcification. The heart remains normal in size. There is age appropriate appearance of the thoracic aorta and ascending great vessels. The right lobe of the thyroid remains larger than the left without distinct mass. There is no sign of supraclavicular or axillary mass or adenopathy. The visualized superior liver, spleen, pancreas, kidneys, and adrenals are normal in appearance. Again seen is moderate thickening of the wall of the inferior thoracic esophagus with mild thickening extending through the superior thoracic esophagus. The findings are consistent with reflux esophagitis although esophageal malignancy cannot be entirely excluded. The osseous structures are normal in appearance for the patient`s age. IMPRESSION: No sign of pulmonary embolism. Acute fractures of the 5th through 10th ribs are now seen, previously only the fractures of the 7th through 9th ribs could be identified. New mild left pleural effusion and mild atelectasis of the posterior left lower lobe with multiple small pleural hematomas adjacent to the multiple acute rib fractures. No sign of pneumothorax or pulmonary contusion. Again seen is mild thickening of the wall of the entire thoracic esophagus and moderate thickening of the wall of the inferior thoracic esophagus consistent with reflux esophagitis, although esophageal malignancy cannot be entirely excluded. Triple-vessel coronary calcification. Please note that all CT scans at this facility use dose modulation, iterative reconstruction, and/or weight-based dosing when appropriate to reduce radiation dose to as low as reasonably achievable. Dictated by Dandre Parikh MD @ 05/27/2022 5:24:24 PM (Electronically Signed)
[2022-05-27 17:23] LABS: Troponin, Point-of-Care* 0.02 ng/ml (0.01-0.04)
[2022-05-27 18:13] VITALS: BP 153/69; PULSE 61; RESP 20
== END 2022-05-27 18:17 | disposition home or self-care (01) ==
PROVIDERS: Emergency Provider Family Medicine; PCP Family Medicine
DX: S22.49XA Multiple fractures of ribs, unspecified side, initial encounter for closed fracture (principal)
CPT/HCPCS: 36415; 71045; 71260; 80053; 81001; 83880; 84484; 85025; 86140; 87631; 93005; 93970; 96374; 96375; 99284; 99285; J2270; J2405; Q9967

== ENCOUNTER 2023-10-22 20:54 | Outpatient (CLI) | payer MEDICARE, BC, SELFPAY | END 2023-10-22 20:55 | disposition home or self-care (01) | PROVIDERS: PCP Family Medicine; Visit Provider Internal Medicine | DX: G47.33 Obstructive sleep apnea (adult) (pediatric) (principal) | CPT/HCPCS: 95810 ==